=== PATIENT | female | born 1950 | race Caucasian/White ===

== ENCOUNTER 2016-12-30 05:21 | Day surgery (SDC) | payer MEDICARE ==
[2016-12-29 13:58] LABS: HEMATOCRIT 46.1 % (36.0-48.0); MCH 32.3 pg (26.0-34.0); MCHC 32.5 g/dL (31.0-37.0); MCV 99.1 fL (80.0-100.0); MEAN PLATELET VOLUME 10.7 fL (7.4-10.4); RBC 4.65 10x6/uL (4.00-5.40); RDW 13.3 % (11.5-14.5); WBC 9.7 10x3/uL (4.8-10.8)
[2016-12-29 14:14] LABS: ANION GAP 17.7 mmol/L (8-16); CALCIUM 9.3 mg/dL (8.5-10.1); CARBON DIOXIDE 25.1 mmol/L (21.0-32.0); CREATININE - SERUM 1.1 mg/dL (0.6-1.3); POTASSIUM - SERUM 3.8 mmol/L (3.5-5.1)
[~2016-12-30] VITALS: Ht 170.2 cm; Wt 76.2 kg
[~2016-12-30 05:21] MED LIST: AMBIEN10 MG PO; BENICAR20 MG PO; CYCLOBENZAPRINE10 MG PO; HYDROCODONE-APA1 TAB PO; LOPRESSOR25 MG PO; MELOXICAM TAB 15M; OMEPRAZOLE20 M1 PO; TORSEMIDE20 MG PO; TRAZODONE HCL150 MG PO; ZOCOR40 MG PO
[2016-12-30 09:01] VITALS: Ht 170.2 cm; Wt 76.2 kg
[2016-12-30] MEDS ORDERED: HYDROCODONE-APA1 TAB PO (11:55)
--- NOTE | 2016-12-30 13:47 | NUR ---
1330 CONSUMED APPROX 80% DIET; DENIES NAUSEA; TO B/R; VOIDED MOD AMT 1340 DISCHARGE INSTRUCTIONS AND PENDELUM EXERCISES DEMONOSTRATED AND REVIEWED WITH PATIENT; VERBALIZED UNDERSTANDING
--- NOTE | 2016-12-31 15:11 | OP ---
PATIENT NAME: ANAYELI CUMMINGS MEDICAL RECORD: [id number] :52 LOCATION:[facility] ADMISSION DATE: SURGEON: BARRINGTON WOOD, THEODORE TAN DATE OF OPERATION: 12/30/2016 PREOPERATIVE DIAGNOSES: 1. Impingement syndrome of the right shoulder. 2. Rotator cuff tear. 3. Distal clavicle excision. POSTOPERATIVE DIAGNOSES: 1. Impingement syndrome of the right shoulder. 2. Rotator cuff tear. 3. Distal clavicle excision. 4. Severe biceps tendinitis. PROCEDURES: 1. Arthroscopic rotator cuff repair of the right shoulder. 2. Arthroscopic subacromial decompression, acromioplasty and bursectomy. PROCEDURES: 1. Arthroscopic distal clavicle excision. 2. Arthroscopic biceps tenotomy. SURGEON: Theodore Ferris MD. ANESTHESIA: General. INTRAOPERATIVE COMPLICATIONS: None. SUMMARY OF PATHOLOGIC FINDINGS: The patient had severe impingement anatomy with rotator cuff tearing, near full-thickness tearing of the biceps tendon as well as acromioclavicular arthritis and a type 3 acromion with excoriation of the coracoacromial ligament. OPERATIVE SUMMARY IN DETAIL: After obtaining the appropriate preoperative orthopedic surgery consents as well as anesthetic consultation, evaluation and clearance, the patient was brought to the operating room and placed on the operating table in supine position. After general laryngeal mask was administered, the patient was placed in left lateral decubitus position. All pressure points were well padded to include down leg peroneal pad as well axillary roll. The patient was held to the operating room table using the vacuum pack suction system. Right upper extremity and shoulder were then prepped and draped in routine sterile fashion. The arm was held in the Arthrex traction boom at 30 degrees of forward flexion, 30 degrees of abduction with 10 pounds of traction laterally. Arthroscopy was established in the glenohumeral joint from a posterior portal. Anterior portal was established in the anterior safe interval. Diagnostic arthroscopy did show the patient to have rotator cuff tearing as well as severe biceps tendinitis. At this point, transarthroscopic rotator cuff tear portal was created. A resector was utilized to debride the rotator cuff tear as well as decorticate the area of the rotator cuff for reapproximation. Surface tissue ablation system was utilized to perform a biceps tenotomy. Having completed this, attention was turned to the subacromial space. [place] tissue ablation system was utilized to denude the undersurface of the acromion of all soft tissue elements. A 5-0 barrel allison was used to perform OPERATIVE REPORT [id number] EMILIANOANAYELI PARIKH acromioplasty at the level of acromioclavicular joint and then through a separate anterior arthroscopic portal, distal clavicle was excised for 1 cm. Attention was then returned to the rotator cuff, further decortication was carried out and then a single #2 FiberTape was placed in an inverted mattress fashion and anchored laterally using a 5.5 SwiveLock from Arthrex. Having completed this, arthroscopy portals were closed in routine interrupted fashion using 4-0 Prolene. Sterile dressings were applied. The patient was awakened, taken to recovery in stable condition. All final needle and sponge counts were correct. TRANSINT:[id number] Voice Confirmation ID: [id number] DOCUMENT ID: [id number] BARRINGTON WOOD, THEODORE TAN at 1511 CC: [id number] DICTATION DATE: 12/30/16 1150 OUTPATIENT INTERVIEWING CLERK: 12/30/16 1249 [facility] 12/30/16 [facility] [address] [place] [address]
== END 2016-12-30 13:45 | disposition home or self-care (01) ==
LOC: D.OPS 05:21 → D.PAN 10:45 → D.OPS 13:40 → D.PAN 13:40 → D.OPS 13:45 → D.PAN 14:40 → D.OPS 14:45 → D.PAN 14:45
PROVIDERS: Anesthesiology
DX: M75.111 Incomplete rotator cuff tear or rupture of right shoulder, not specified as traumatic (principal); M75.41 Impingement syndrome of right shoulder; M75.21 Bicipital tendinitis, right shoulder

== ENCOUNTER 2017-12-02 17:27 | Emergency (ER) | payer MEDICARE ==
[2016-12-30 09:01] VITALS: BMI 26.3
[2017-12-02 18:37] LABS: APPEARANCE CLEAR (CLEAR); BILIRUBIN NEGATIVE (NEGATIVE); COLOR YELLOW (YELLOW); GLUCOSE NEGATIVE (NEGATIVE); KETONE NEGATIVE (NEGATIVE); NITRITE NEGATIVE (NEGATIVE); PROTEIN NEGATIVE (NEGATIVE); UROBILINOGEN NORMAL (NORMAL)
[2017-12-02 18:40] LABS: BACTERIA FEW /hpf (NONE SEEN); RED CELLS - URINE OCC /hpf (0-5); WHITE CELLS - URINE 0-5 /hpf (0-5)
== END 2017-12-02 19:35 | disposition home or self-care (01) ==
LOC: D.ER 17:27
PROVIDERS: Family Medicine
DX: M54.16 Radiculopathy, lumbar region (principal)

== ENCOUNTER → 2018-12-11 13:00 | Outpatient (CLI) | payer MEDICARE ==
[2016-12-30 09:01] VITALS: BMI 26.3
[2018-12-11 14:03] LABS: APPEARANCE CLEAR (CLEAR); BILIRUBIN NEGATIVE (NEGATIVE); COLOR YELLOW (YELLOW); GLUCOSE NEGATIVE (NEGATIVE); KETONE NEGATIVE (NEGATIVE); NITRITE NEGATIVE (NEGATIVE); PROTEIN NEGATIVE (NEGATIVE); SPECIFIC GRAVITY 1.005 (1.005-1.020); UROBILINOGEN NORMAL (NORMAL)
== END | disposition home or self-care (01) ==
LOC: D.LAB 12-07 14:00
PROVIDERS: ATTEND Internal Medicine
DX: N17.9 Acute kidney failure, unspecified (principal)

== ENCOUNTER → 2018-12-13 12:10 | Outpatient (CLI) | payer MEDICARE ==
[2016-12-30 09:01] VITALS: BMI 26.3
[2018-12-13 13:00] LABS: ALBUMIN 3.8 g/dL (3.4-5.0); ANION GAP 12.6 mmol/L (8-16); BILIRUBIN - TOTAL 0.35 mg/dL (0.2-1.3); CALCIUM 8.8 mg/dL (8.5-10.1); CARBON DIOXIDE 28.6 mmol/L (21.0-32.0); CREATININE - SERUM 1.1 mg/dL (0.6-1.3); POTASSIUM - SERUM 3.2 mmol/L (3.5-5.1); PROTEIN - SERUM 6.9 g/dL (6.4-8.2)
== END | disposition home or self-care (01) ==
LOC: D.LAB 12:10
PROVIDERS: ATTEND Specialist
DX: N17.9 Acute kidney failure, unspecified (principal)

== ENCOUNTER 2019-01-05 05:54 | Outpatient (CLI) | payer MEDICARE ==
[~2019-01-05] VITALS: Ht 170.2 cm; Wt 68.6 kg
--- NOTE | ~2019-01-05 | HEMODYNAMI ---
PATIENT:ANAYELI CUMMINGS MEDICAL RECORD: [id number] : 52 LOCATION:[facility] ADMISSION DATE: 01/05/19 Generatedon:01/05/201911:20 Patient name: ANAYELI CUMMINGS Patient #: [id number] SSN : : 1950 Date of study: 01/05/2019 Page: Of Hemodynamic Procedure Report Patient Data Patient Demographics Procedure consent was obtained First Name: ANAYELI Gender: Female Last Name: EMILIANO : 1950 [facility] Initial: JL Age: 68 year(s) Patient #: [id number] Race: Unknown Additional ID: [id number] Contact details [address]: [address] [place] [address] [place] [facility] Zip code: [address] Past Medical History Allergies Allergen Reaction Date Comments Reported Penicillins 01/05/2019 Admission Admission Data Admission Date: 01/05/2019 Admission Time: 5:54 Procedure Procedure Types Cath Procedure Peripheral Cath Diagnostic Procedure Abd/Extremity Visceral/Mesenteric Mesenteric Arteriogram (Abd Artery) Procedure Description Procedure Date Procedure Date: 01/05/2019 Procedure Start Time: 9:17 Procedure End Time: 11:18 Procedure Staff Name Function Stanislaw Mccall MD Performing Physician Lidya Gabriel RT Monitor Odalys Rogers RN Nurse Quoc Tijerina RT Scrub AZRA ARENAS RT Scrub Jovanna Sharp RN Nurse Procedure Data Cath Procedure Fluoroscopy Diagnostic fluoroscopy Total fluoroscopy Time: time: 24.8 min 24.8 min Diagnostic fluoroscopy Total fluoroscopy dose: dose: 3244 mGy 3244 mGy Contrast Material Contrast Material Type Amount (ml) Isovue 300 105 Diagnostic catheters Device Type Used For End Catheter Placement Angiodynamics SOS OMNI 2 Abdominal NON B 5FR 65CM catheter aortogram ([id number]) Procedure Medications Medication Administration Route Dosage Heparin Flush Bag added to field 3 bags (1000units/500ml NS) Lidocaine 1% added to field 20 Fentanyl I.V. 50 mcg Versed I.V. 1 mg Versed I.V. 0.5 mg Fentanyl I.V. 25 mcg Versed I.V. 0.5 mg Fentanyl I.V. 25 mcg Benadryl I.V. 25 mg Benadryl I.V. 25 mg Fentanyl I.V. 50 mcg Versed I.V. 1 mg Heparin Bolus 5000 units Versed I.V. 1 mg Fentanyl I.V. 50 mcg Versed I.V. 1 mg Versed I.V. 1 mg Hemodynamics Rest Heart Rate: 64 (bpm) Snapshots Pre Cath Intra NCS Post Cath Vital Signs Time Heart Resp SPO2 etCO2 NIBP (mmHg) Rhythm Pain Sedation Rate (ipm) (%) (mmHg) Status Level (bpm) 8:50:23 66 99 0 142/75(115) NSR 0 (11) 10(A) , No pain 8:54:41 69 15 98 29.4 148/74(116) NSR 0 (11) 10(A) , No pain 8:59:05 66 16 100 29.4 144/67(116) NSR 0 (11) 9(A) , No pain 9:03:29 63 11 100 27.9 140/63(117) NSR 0 (11) 9(A) , No pain 9:07:52 62 11 100 31.6 142/60(128) NSR 0 (11) 9(A) , No pain 9:12:51 65 12 100 30.1 143/71(106) NSR 0 (11) 9(A) , No pain 9:17:11 69 17 100 28.6 148/70(107) NSR 0 (11) 8(A) , No pain 9:21:31 67 14 100 30.9 129/66(106) NSR 0 (11) 8(A) , No pain 9:25:39 75 24 100 18.8 125/67(99) NSR 0 (11) 8(A) , No pain 9:29:55 68 22 100 21.8 132/63(97) NSR 0 (11) 8(A) , No pain 9:34:15 67 5 100 34.6 137/62(97) NSR 0 (11) 8(A) , No pain 9:38:35 70 15 100 33.1 135/66(96) NSR 0 (11) 8(A) , No pain 9:42:53 71 16 100 22.6 134/68(93) NSR 0 (11) 8(A) , No pain 9:47:11 72 10 100 35.4 140/69(93) NSR 0 (11) 8(A) , No pain 9:51:33 67 15 100 32.4 134/64(105) NSR 0 (11) 8(A) , No pain 9:55:56 66 15 100 32.4 132/57(95) NSR 0 (11) 8(A) , No pain 10:00:16 68 15 99 36.9 127/60(96) NSR 0 (11) 8(A) , No pain 10:04:34 68 12 100 38.4 117/59(90) NSR 0 (11) 8(A) , No pain 10:08:50 67 11 100 36.9 114/52(92) NSR 0 (11) 8(A) , No pain 10:13:04 68 10 100 33.1 123/54(93) NSR 0 (11) 8(A) , No pain 10:17:20 68 20 33.1 121/62(89) NSR 0 (11) 8(A) , No pain 10:21:36 68 16 33.9 137/56(92) NSR 0 (11) 8(A) , No pain 10:25:54 68 13 100 31.6 130/67(103) NSR 0 (11) 8(A) , No pain 10:30:12 65 12 100 31.6 131/61(97) NSR 0 (11) 8(A) , No pain 10:34:30 63 14 99 27.9 128/63(103) NSR 0 (11) 8(A) , No pain 10:38:46 63 16 100 16.5 119/64(85) NSR 0 (11) 8(A) , No pain 10:42:58 63 12 100 31.6 124/66(103) NSR 0 (11) 8(A) , No pain 10:47:14 64 30 100 31.6 134/64(108) NSR 0 (11) 8(A) , No pain 10:48:52 64 17 100 30.1 134/66(112) NSR 0 (11) 8(A) , No pain 10:53:11 63 10 100 33.1 127/65(104) NSR 0 (11) 8(A) , No pain 10:57:26 66 16 97 27.9 131/63(89) NSR 0 (11) 8(A) , No pain 11:01:45 63 8 16.5 126/65(87) NSR 0 (11) 8(A) , No pain 11:06:07 58 5 18.8 116/49(58) NSR 0 (11) 8(A) , No pain 11:10:17 59 15 28.6 129/70(94) NSR 0 (11) 8(A) , No pain 11:14:43 59 52 27.1 NSR 0 (11) 8(A) , No pain 11:16:48 59 17 25.6 Disturbed NSR 0 (11) 8(A) , No pain 11:18:02 59 15 32.4 131/67(111) NSR 0 (11) 8(A) , No pain Medications Time Medication Route Dose Verified Delivered Reason Notes Effectiveness by by 8:56:41 Heparin Flush added 3 Stanislaw Dover used for Bag to bags Cal Mccall MD procedure (1000units/500ml field WOOD NS) 8:57:26 Lidocaine 1% added 20ml Stanislaw Dover for local to vial Cal Mccall MD anesthetic field WOOD 9:16:19 Fentanyl I.V. 50 Stanislaw Jovanna for sedation mcg Aron Mccall RN, MD 9:16:44 Versed I.V. 1 mg Stanislaw Nugent for sedation Aron Mccall RN, MD 9:19:45 Versed I.V. 0.5 Stanislaw Jovanna for sedation mg Aron Mccall RN, MD 9:19:56 Fentanyl I.V. 25 Stanislaw Odonnelli for sedation mcg Aron Mccall RN, MD 9:20:46 Versed I.V. 0.5 Stanislaw Jovanna for sedation mg Aron Mccall RN, MD 9:20:58 Fentanyl I.V. 25 Stanislaw Jovanna for sedation mcg Aron Mccall RN, MD 9:25:05 Benadryl I.V. 25 mg Stanislaw Nugent for sedation Aron Mccall RN, MD 9:32:49 Benadryl I.V. 25 mg Stanislaw Jovanna for sedation Aron Mccall RN, MD 9:49:34 Fentanyl I.V. 50 Stanislaw Jovanna for sedation mcg Aron Mccall RN, MD 9:49:45 Versed I.V. 1 mg Stanislaw Jovanna for sedation Aron Mccall RN, MD 9:57:56 Heparin Bolus 5000 Stanislaw Jovanna for units Aron Mccall RN anticoagulation 10:01:55 Versed I.V. 1 mg Stanislaw Jovanna for sedation Aron Mccall RN, MD 10:02:05 Fentanyl I.V. 50 Stanislaw Jovanna for sedation mcg Aron Mccall RN, MD 10:28:26 Versed I.V. 1 mg Stanislaw Jovanna for sedation Aron Mccall RN, MD 10:52:38 Versed I.V. 1 mg Stanislaw Jovanna for sedation Aron Mccall RN, MD Procedure Log Time Note 7:56:12 Use device set IR Diagnostic 7:56:14 ACIST Syringe (44005) opened to sterile field. 7:56:15 ACIST Hand Control (41784) opened to sterile field. 7:56:16 ACIST Manifold (61478) opened to sterile field. 7:56:17 Bag Decanter (2002S) opened to sterile field. 7:56:18 Sterile Angiographic Pack opened to sterile field. 7:56:19 Tegaderm 4 x 4 (1626W) opened to sterile field. 7:57:04 SHEATH 5FR [place] (UMO830) opened to sterile field. 8:00:09 MICROPUNCTURE 4FR Cook (I88011) opened to sterile field. 8:00:59 DOC .035 wire (D54850) opened to sterile field. 8:47:37 Quoc Tijerina RT (R) (CV) sent for patient. Start room use. 8:47:41 Time tracking: Regular hours (M-F 7:00 - 5:00) 8:47:52 Plan of Care:Hemodynamics will remain stable., Cardiac rhythm will remain stable., Comfort level will be maintained., Respiratory function will remain adequate., Patient/ family verbilizes understanding of procedure., Procedure tolerated without complication., Recovers from procedure without complications.. 8:48:03 Patient received from Outpatients to IR Alert and oriented. Tansferred to table in Supine position. 8:48:06 Warm blankets applied for patient comfort. 8:49:03 Correct patient and procedure confirmed by team. 8:49:07 Signed procedure consent form obtained from patient. 8:49:09 ECG and BP/O2 sat monitors applied to patient. 8:49:10 Vital chart was started 8:49:21 Baseline sample Acquired. 8:49:52 Full Disclosure recording started 8:49:53 - 8:50:13 H&P Date Dictated: 01/05/2019 H&P Addendum completed by physician on day of procedure. (MUST COMPLETE FOR ALL OUTPATIENTS). 8:50:16 Pre-procedure instructions explained to patient. 8:50:18 Pre-op teaching completed and patient verbalized understanding. 8:50:29 Family in waiting room. 8:50:34 Patient NPO since Dinner. 8:50:50 Patient allergic to Penicillins 8:50:57 Is the patient allergic to Iodine/contrast media? No. 8:51:17 ----Pre-sedation anethsthesia assessment.---- 8:51:22 Previous problem with sedation/anesthesia? No ? 8:51:28 Opens mouth fully? Yes 8:51:32 Sticks out tongue? Yes 8:51:38 Airway obstruction? No ? 8:51:41 Dentures? No ? 8:53:35 Is patient on blood thinner?Yes 8:53:42 ACC The patient was administered the following blood thiners within the last 24 hours: ACCPlavix 8:54:06 Baseline sample Acquired. 8:54:43 Snore? Yes 8:54:46 Sleep apnea? No 8:54:50 Deviated septum? No 8:55:09 Pre procedure: bilateral dorsailis pedis pulse Doppler 8:56:07 IV patent on arrival in left forearm with 0.9% NaCl at [facility]. 8:56:22 Right groin area was prepped with chlora-prep and draped in sterile fashion 8:56:24 Alarms reviewed. 8:56:25 Sharps counted by scrub and verified. 8:56:41 Heparin Flush Bag (1000units/500ml NS) 3 bags added to field was administered by Stanislaw Mccall MD; used for procedure; 8:57:26 Lidocaine 1% 20ml vial added to field was administered by Stanislaw Mccall MD; for local anesthetic; 9:13:35 Angiodynamics Omniflush 5Fr 65cm ([id number]) opened to sterile field. 9:13:51 Physician arrived 9::52 --------ALL STOP TIME OUT------ 9:13:54 Final Timeout: patient, procedure, and site verified with staff and physician. All members of the team are in agreement. 9:13:59 Right groin site verified by team. 9:14:13 Sedation plan: IV Moderate Sedation Medication:Versed, Fentanyl, Lidocaine 9:14:19 Procedure started. 9:16:19 Fentanyl 50 mcg I.V. was administered by Jovanna Sharp RN; for sedation; 9:16:44 Versed 1 mg I.V. was administered by Jovanna Sharp RN; for sedation; 9:17:25 Local anesthetic to right femoral artery with Lidocaine 1% by Stanislaw Mccall MD.INITIAL ACCESS ONLY 9:19:45 Versed 0.5 mg I.V. was administered by Jovanna Sharp RN; for sedation; 9:19:46 GLIDE WIRE Angled Super Stiff 180cm (UO5998) opened to sterile field. 9:19:56 Fentanyl 25 mcg I.V. was administered by Jovanna Sharp RN; for sedation; 9:20:12 TORQUE DEVICE PLASTIC .038 ( TD01) opened to sterile field. 9:20:23 Access obtained with 4Fr micropunture. 9:20:46 Versed 0.5 mg I.V. was administered by Jovanna Sharp RN; for sedation; 9:20:58 Fentanyl 25 mcg I.V. was administered by Jovanna Sharp RN; for sedation; 9:21:31 5 icelandic sheath in the right femeral artery. 9:23:14 An injection is performed thru the sheath. 9:23:50 The 5 icelandic omni flush catheter is inserted into the Abd aorta. 9:25:05 Benadryl 25 mg I.V. was administered by Jovanna Sharp RN; for sedation; 9:27:15 An injection was made. 9:28:12 GLIDE WIRE ANGLE 180cm (NZ8249) opened to sterile field. 9:30:10 A Angiodynamics SOS OMNI 2 NON B 5FR 65CM catheter ([id number]) was advanced over the wire and used for Abdominal aortogram. 9:31:30 An exchange is made for the sos omni catheter. 9:32:49 Benadryl 25 mg I.V. was administered by Jovanna Sharp RN; for sedation; 9:35:03 GLIDE CATHETER 5FR ANGLED 65cm (CG507) opened to sterile field. 9:43:30 Fraire 180 wire (C61000) opened to sterile field. 9:46:49 SHEATH 6FR Destination (RSR01) opened to sterile field. 9:47:25 INFLATOR BasixTOUCH (KO8040) opened to sterile field. 9:49:34 Fentanyl 50 mcg I.V. was administered by Jovanna Sharp RN; for sedation; 9:49:45 Versed 1 mg I.V. was administered by Jovanna Sharp RN; for sedation; 9:53:17 FRAIRE 260 wire (N83936) opened to sterile field. 9:53:57 The 5 icelandic sheath is exchanged for a 6 icelandic destination sheath. 9:57:56 Heparin Bolus 5000 units was administered by Jovanna Sharp RN; for anticoagulation; 9:59:14 Inflate balloon Inflation number: 1 A Evercross 3 x 2 x 135 Balloon ([id number]) was prepped and advanced across the Proximal Superior Mesenteric, then inflated to 0 BETTY for 0:00 (min:sec). 10:01:55 Versed 1 mg I.V. was administered by Jovanna Sharp RN; for sedation; 10:02:05 Fentanyl 50 mcg I.V. was administered by Jovanna Sharp RN; for sedation; 10:13:58 a second inflation is made with the evercross balloon:10atm for 20 seconds. 10:14:20 The evercross balloon was exchanged for the VISI-PRO STENT 5X17. 10:14:32 Place stent Inflation Number: 2 A Visipro 5 x 17 x 135 Stent ([id number]) was prepped and advanced across the Proximal Superior Mesenteric. The stent was deployed at 8 BETTY for 0:00 (min:sec). 10:15:41 stent retrived from sma artery did not deploy and was deployed in rt iliac artery 10:19:57 CXI Catheter 90cm (A87915) opened to sterile field. 10:21:51 The stent catheter is removed and the CXI catheter is insterted into th e sma. 10:27:11 Cook Conchita 1 7Fr Guide sheath opened to sterile field. 10:28:26 Versed 1 mg I.V. was administered by Jovanna Sharp RN; for sedation; 10:29:16 The destination sheath is removed and the Cook Conchita 1 7 icelandic guide sheath is inserted into the right femeral artery. 10:30:29 the CXI cath is reinserted. 10:34:29 Inflate balloon Inflation number: 3 A Evercross 3 x 6 x 135 Balloon ([id number]) was prepped and advanced across the Proximal Superior Mesenteric, then inflated to 10ATM for 0:20 (min:sec). 10:48:00 St To[place] 7FR sheath opened to sterile field. 10:49:44 The 7 icelandic short sheath replaces the cook conchita 1 sheath. 10:50:09 Inflate balloon Inflation number: 1 A Evercross 5 x 4 x 135 Balloon ([id number]) was prepped and advanced across the right iliac , then inflated to 10 BETTY for 0:30 (min:sec). 10:52:38 Versed 1 mg I.V. was administered by Jovanna Sharp RN; for sedation; 10:58:15 EXOSEAL 7Fr (EX700) opened to sterile field. 10:58:51 The sheath is removed and the exoseal is deployed. 10:59:56 Procedure ended.(Physican Out) 11:05:23 Fluoroscopy time 24.80 minutes. 11:05:40 Fluoroscopy dose: 3244 mGy 11:05:40 Flurop Dose total: 3244 11:05:49 Contrast amount:Isovue 300 105ml. 11:05:52 Sharps counted by scrub and verified. 11:11:18 Post-op/insertion site Right Femoral artery dressed using a 4 x 4 and Tegaderm. 11:11:31 Post right femeral artery:stable 11:11:59 Post Procedure Pulses reassessed and unchanged 11:12:08 Post procedure instruction explained to patient.Patient verbalizes understanding. 11:12:09 Patient needs reinforcement of post procedure teaching. 11:17:50 Procedure and supply charges have been captured, reviewed, submitted an d are correct. 11:17:53 See physician's report for complete and final results. 11:17:58 Report given to Outpatients. 11:18:07 Patient transfered to Outpatients with Stretcher. 11:18:52 Procedure ended. 11:18:52 Full Disclosure recording stopped 11:20:05 Vital chart was stopped Intervention Summary Intervention Notes Time ActionType Lesion and Equipment Used Action# Pressure Duration Attributes 9:59:14 Inflate Proximal Evercross 3 x 2 x 1 0 00:00 balloon Superior 135 Balloon Mesenteric ([id number]) 10:14:32 Place stent Proximal Visipro 5 x 17 x 2 8 00:00 Superior 135 Stent Mesenteric ([id number]) 10:34:29 Inflate Proximal Evercross 3 x 6 x 3 0 00:00 balloon Superior 135 Balloon Mesenteric ([id number]) 10:50:09 Inflate Undefined Evercross 5 x 4 x 1 0 00:00 balloon lesion 1 on 135 Balloon undefined ([id number]) graft 1 Device Usage Item Name Manufacture Quantity Catalog Number Hospital Part Curr ent Minimal Lot# / Charge Number Stock Stock Serial# Code ACIST Syringe Acist Medical 1 03032 663398 299934 4274 85 20 (58823) Systems Inc ACIST Hand Acist Medical 1 87264 871660 968606 3591 12 5 Control (71990) Systems Inc ACIST Manifold Acist Medical 1 05618 689935 627229 0081 29 5 (57807) Systems Inc Bag Decanter Microtek 1 2001S 502849 86614 9871 15 5 (2001S) Medical Inc. Sterile Cardinal 1 [id number] 477446 2729 84 5 Angiographic Pack Health Tegaderm 4 x 4 3M 1 1626W 738694 777849 4244 43 5 (1626W) SHEATH 5FR Terumo 1 YNF076 207484 169267 0814 08 5 [place] (BFI029) MICROPUNCTURE 4FR Cook Medical 1 H08033 670081 708906 7879 65 5 Cook (N65677) DOC .035 wire Cook Medical 1 S64567 206659 9658 01 5 (Q32027) Angiodynamics Angiodynamics 1 47161064 063428 987485 0863 46 5 Omniflush 5Fr 65cm (30359788) GLIDE WIRE Angled Terumo 1 IZ3703 889518 8280 27 5 Super Stiff 180cm (ON7403) TORQUE DEVICE Rufus 1 TD01 467411 218622 4645 47 5 PLASTIC .038 ( Scientific TD01) GLIDE WIRE ANGLE Terumo 1 AV9021 445969 189352 4150 35 5 180cm (NC6467) Angiodynamics SOS Angiodynamics 1 68823643 172998 01558 9999 12 5 OMNI 2 NON B 5FR 65CM catheter (13550192) GLIDE CATHETER Terumo 1 CG507 979148 4754 30 5 5FR ANGLED 65cm (CG507) Fraire 180 wire Selligy Medical 1 V04206 311127 634734 0051 967 5 6919281 (U65938) SHEATH 6FR Terumo 1 RSR01 763761 47648 9996 46 5 Destination (RSR01) INFLATOR [facility] 1 YW2408 492572 711961 3538 87 5 BasixTOUCH (BN7017) Evercross 3 x 2 x Medtronic 1 [id number] 876995 333809 4834 95 5 [id number] 135 Balloon ([id number]) FRAIRE 260 wire Elo7 1 Y77165 321769 61479 9995 98 5 0234125 (W62270) Visipro 5 x 17 x Medtronic 1 WQF02-30-21-995 299430 286128 3525 98 5 [id number] 135 Stent (TVY35-43-38-998) CXI Catheter 90cm Elo7 1 P60535 750564 161877 9425 16 5 7134876 (Q81724) Cook Conchita 1 7Fr Selligy Medical 1 H19420 946230 2891 90 5 [id number] Guide sheath Evercross 3 x 6 x Medtronic 1 [id number] 866439 577622 2895 95 5 135 Balloon ([id number]) St Toño 7FR St Toño 1 382612 337339 2250 61 5 [id number] sheath Evercross 5 x 4 x Medtronic 1 [id number] 563417 634397 6392 89 5 135 Balloon ([id number]) EXOSEAL 7Fr Cardinal 1 EX700 514832 288804 3815 49 5 (EX700) Health Signature Audit [place] Stage Time Signature Unsigned Intra-Procedure 01/05/2019 Lidya 11:20:01 AM Harvey HICKEY(Fatou) (CV) Signatures Monitor : Lidya Signature : Harvey HICKEY Date : Time : [facility] [address] [place] [address]
[2019-01-05 06:37] LABS: BASOPHILS 1.4 % (0-2); EOSINOPHILS 3.7 % (0-7); HEMATOCRIT 38.2 % (36.0-48.0); IMMATURE GRANULOCYTES 0.1 % (0-5); LYMPHOCYTES 18.5 % (15-50); MCH 32.3 pg (26.0-34.0); MCV 94.8 fL (80.0-100.0); MEAN PLATELET VOLUME 10.8 fL (7.4-10.4); MONOCYTES 8.2 % (2-11); NEUTROPHILS 68.1 % (40-80); PLATELET COUNT 277 10x3/uL (130-400); RBC 4.03 10x6/uL (4.00-5.40); WBC 8.3 10x3/uL (4.8-10.8)
[2019-01-05 06:50] LABS: ANION GAP 12.9 mmol/L (8-16); CALCIUM 8.9 mg/dL (8.5-10.1)
[2019-01-05 06:51] LABS: APTT 25.6 SECONDS (22.8-39.4); INR 1.01 (0.85-1.17); PROTIME 12.8 SECONDS (11.6-15.0)
[2019-01-05 06:58] LABS: POTASSIUM - SERUM 2.9 mmol/L (3.5-5.1)
[2019-01-05] MEDS ORDERED: PLAVIX75 MG (07:18)
[2019-01-05] MEDS ORDERED: BAYER CHEWABLE81 MG PO (07:18)
[2019-01-05 07:32] VITALS: BP 107/63; Ht 170.2 cm; Wt 68.6 kg
--- NOTE | 2019-01-05 08:09 | NUR ---
7558 LIGIA NICK RN NOTIFIED OF PT'S CRITICAL LOW POTASSIUM AND THAT PT TOOK HER PLAVIX AT 0330 TODAY. STATES SHE WILL RELAY INFORMATION TO DR HERNÁNDEZ. 1000 RECEIVED PHONE CALL FROM LIGIA THAT POTASSIUM IN POWDER FORM HAS BEEN ORDERED ON PT FROM DR. HERNÁNDEZ. REQUESTING IT BE GIVEN EMILY. 0805 POTASSIUM MIXED IN 4 OZ OF COLD WATER.
--- NOTE | 2019-01-05 12:13 | NUR ---
1130 VITAL SIGNS BEING DOCUMENTED ON POST PROCEDURE FORM.
--- NOTE | 2019-01-05 12:23 | NUR ---
1215 ICE PACK TO RIGHT GROIN
--- NOTE | 2019-01-05 16:06 | NUR ---
1445 PT NAUSEATED AND VOMITED SMALL AMOUNT OF WATER. ZOFRAN GIVEN 1505 PT SAT ON SIDE OF BED WITHOUT DIZZINESS. AMBULATED WITHOUT ANY SIGNS OF WEAKNESS. PT STATES THAT SHE FEELS FINE. PT SITTING UP IN CHAIR FOR A FEW MINUTES BEFORE TAKING OUT IV. 1515 IV DC'D. CATHETER INTACT. NO BLEEDING AT SITE AFTER HOLDING PRESSURE. BANDAID APPLIED. 1520 PT DRESSED. DISCHARGED INSTRUCTIONS GIVEN. PT VERBALIZES UNDERSTANDING OF CARE OF RIGHT GROIN DRESSING AND WHAT TO DO IF IT STARTS TO BLEED.
== END 2019-01-05 15:32 | disposition home or self-care (01) ==
LOC: D.SP 05:54 → D.RAD 09:00 → D.SP 15:32
PROVIDERS: ATTEND General Practice
DX: I77.4 Celiac artery compression syndrome (principal); K55.1 Chronic vascular disorders of intestine; Z01.812 Encounter for preprocedural laboratory examination

== ENCOUNTER 2019-01-22 10:40 | Inpatient (IN) | payer MEDICARE ==
[~2019-01-22] VITALS: Ht 170.2 cm; Wt 83.8 kg
[2019-01-22] VITALS (18 sets, daily range): BP systolic 77–105; BP diastolic 40–59; BMI 23.5; BMI 24.8
--- NOTE | ~2019-01-22 | HEMODYNAMI ---
PATIENT:ANAYELI CUMMINGS MEDICAL RECORD: [id number] : 52 LOCATION:[facility] ADMISSION DATE: 01/22/19 Generatedon:01/22/201916:05 Patient name: ANAYELI CUMMINGS Patient #: [id number] SSN : : 1950 Date of study: 01/22/2019 Page: Of Hemodynamic Procedure Report Patient Data Patient Demographics Procedure consent was obtained First Name: ANAYELI Gender: Female Last Name: EMILIANO : 1950 [facility] Initial: JL Age: 68 year(s) Patient #: [id number] Race: Unknown Additional ID: [id number] Contact details [address]: [address] [place] [address] [place] [facility] Zip code: [address] Past Medical History Allergies Allergen Reaction Date Comments Reported Penicillins 01/05/2019 Admission Admission Data Admission Date: 01/22/2019 Admission Time: 10:40 Procedure Procedure Types Cath Procedure Peripheral Cath Diagnostic Procedure Abd/Extremity Visceral/Mesenteric Procedure Description Procedure Date Procedure Date: 01/22/2019 Procedure Start Time: 13:53 Procedure Staff Name Function Stanislaw Mccall MD Performing Physician Quoc Tijerina RT Monitor AZRA ARENAS RT Scrub Jovanna Sharp RN Nurse [place] CRNA Additional personnel Procedure Data Cath Procedure Fluoroscopy Diagnostic fluoroscopy Total fluoroscopy Time: 0 time: 0 min min Diagnostic fluoroscopy Total fluoroscopy dose: dose: 1456 mGy 1456 mGy Contrast Material Contrast Material Type Amount (ml) Isovue 300 195 Entry Location Entry Primary Successful Side Size Upsize 1 Upsize Entry Closure Mark ccessful Closure Location (Fr) (Fr) 2 (Fr) Remarks Device Remarks Femoral Left 5 Fr 6 Fr artery Mid-Length Diagnostic catheters Device Type Used For End Catheter Placement Angiodynamics SOS OMNI 2 NON B 5FR 65CM catheter ([id number]) DIAGNOSTIC IMT 5Fr Catheter ([id number]) Procedure Medications Medication Administration Route Dosage Heparin Flush Bag added to field 3 bags (1000units/500ml NS) Lidocaine 1% added to field 20 Heparin Bolus I.V. 4000 units Heparin Bolus I.V. 2000 units Hemodynamics Rest Pre Cath Intra NCS Post Cath Medications Time Medication Route Dose Verified Delivered Reason Notes Effectiveness by by 13:44:35 Heparin Flush added 3 Stanislaw Dover used for Bag to bags Cal Mccall MD procedure (1000units/500ml field WOOD NS) 13:45:13 Lidocaine 1% added 20ml Stanislaw Dover for local to vial Cal Mccall MD anesthetic field WOOD 14:46:01 Heparin Bolus I.V. 4000 Stanislaw Nugent for units Aron Mccall RN anticoagulation 15:20:35 Heparin Bolus I.V. 2000 Stanislaw Nugent for units Aron Mccall RN anticoagulation Procedure Log Time Note 13:20:17 Quoc Tijerina RT (R) (CV) sent for patient. Start room use. 13:21:26 Time tracking: Regular hours (M-F 7:00 - 5:00) 13:21:32 Plan of Care:Hemodynamics will remain stable., Cardiac rhythm will remain stable., Comfort level will be maintained., Respiratory function will remain adequate., Patient/ family verbilizes understanding of procedure., Procedure tolerated without complication., Recovers from procedure without complications.. 13:21:41 Patient received from Outpatients to IR Alert and oriented. Tansferred to table in Supine position. 13:21:42 Warm blankets applied, and travis hugger turned on for patient comfort. 13:21:43 Correct patient and procedure confirmed by team. 13:21:44 Signed procedure consent form obtained from patient. 13:21:46 Full Disclosure recording started 13:21:47 - 13:22:05 SEE ANESTHESIA NOTE FOR PRE PROCEDURE TIVA 13:22:06 - 13:22:10 Use device set IR Diagnostic 13:22:11 ACIST Syringe (91657) opened to sterile field. 13:22:12 ACIST Hand Control (15097) opened to sterile field. 13:22:13 ACIST Manifold (07289) opened to sterile field. 13:22:13 Bag Decanter (2002S) opened to sterile field. 13:22:13 Sterile Angiographic Pack opened to sterile field. 13:22:16 Tegaderm 4 x 4 (1626W) opened to sterile field. 13:22:22 Alarms reviewed by R. N. 13:22:23 Sharps counted by scrub and verified by R.N. 13:22:26 Right groin area was prepped with chlora-prep and draped in sterile fashion 13:36:19 [place] CRNA present and monitoring patient for TIVA. 13:44:35 Heparin Flush Bag (1000units/500ml NS) 3 bags added to field was administered by Stanislaw Mccall MD; used for procedure; 13:45:13 Lidocaine 1% 20ml vial added to field was administered by Stanislaw Mccall MD; for local anesthetic; 13:53:28 --------ALL STOP TIME OUT------ 13:53:29 Final Timeout: patient, procedure, and site verified with staff and physician. All members of the team are in agreement. 13:53:30 Right groin site verified by team. 13:53:36 Maximum allowable Isovue 300 dose 300ml. Physician notified. (300ml for normal creatinines. For patients with creatinine of 1.7 or higher multiply weight(kg) x 5 divided by creatinine.) 13:53:41 Fire Safety Assessment: A--An alcohol-based skin anteseptic being used preoperatively., C--Open oxygen or nitrous oxide is being used. 13:53:45 Sedation plan: General Anesthesia Medication:General Anesthesia 13:53:53 Procedure started. 13:53:58 Local anesthetic to LEFT femoral artery with Lidocaine 1% by Stanislaw Mccall MD.INITIAL ACCESS ONLY 13:56:36 SHEATH 5FR Nicholson (RPM451) opened to sterile field. 13:56:37 Micropuncture VSI 4FR kit opened to sterile field. 13:56:39 DOC .035 wire (Y38305) opened to sterile field. 13:57:03 TUBING Contrast Injection High Pressure (LSQ120X) opened to sterile field. 14:11:52 NITINOL .018 80cm wire (C246548) opened to sterile field. 14:12:24 Angiodynamics Omniflush 5Fr 65cm (52656978) opened to sterile field. 14:13:24 GLIDE WIRE ANGLE 180cm (TZ0526) opened to sterile field. 14:13:35 TORQUE DEVICE PLASTIC .038 ( TD01) opened to sterile field. 14:18:27 A 5 Fr sheath was inserted into the Left Femoral artery 14:21:36 A AngioQuantagen BiotechnamvBrand SOS OMNI 2 NON B 5FR 65CM catheter ([id number]) was advanced over the wire and used for . 14:22:29 Cook LUCINA 1 6FR. Guide sheath opened to sterile field. 14:22:37 Sheath upsized to a 6 Fr Mid-Length. 14:24:02 GLIDE WIRE Super Stiff Angled 260cm (MC3868) opened to sterile field. 14:25:16 GLIDE CATHETER 5FR ANGLED 65cm (CG507) opened to sterile field. 14:26:53 GLIDE WIRE ANGLE 180cm (DS8420) opened to sterile field. 14:30:08 FRAIRE 260 wire (K97308) opened to sterile field. 14:37:30 INFLATOR BasixTOUCH (XJ9352) opened to sterile field. 14:42:41 Inflate balloon Inflation number: 1 A Evercross 4 x 2 x 135 Balloon ([id number]) was prepped and advanced across the Proximal Superior Mesenteric, then inflated to 16 BETTY for 0:57 (min:sec). 14:46:01 Heparin Bolus 4000 units I.V. was administered by Jovanna Sharp RN; for anticoagulation; 14:53:15 Inflate balloon Inflation number: 2 A Evercross 4 x 4 x 135 Balloon ([id number]) was prepped and advanced across the Proximal Superior Mesenteric, then inflated to 16 BETTY for 0:56 (min:sec). 14:56:23 Place stent Inflation Number: 3 A Visipro 6 x 27 x 135 Stent ([id number]) was prepped and advanced across the Proximal Superior Mesenteric. The stent was deployed at 0 BETTY for 0:00 (min:sec). 15:02:13 GLIDE CATHETER 5FR COBRA 65cm (CG502) opened to sterile field. 15:04:47 A DIAGNOSTIC IMT 5Fr Catheter ([id number]) was advanced over the wire an d used for . 15:20:35 Heparin Bolus 2000 units I.V. was administered by Jovanna Sharp RN; for anticoagulation; 15:26:10 Procedure ended.(Physican Out) 15:26:35 Contrast amount:Isovue 300 195ml. 15:27:02 Fluoroscopy time 00.00 minutes. 15:27:08 Fluoroscopy dose: 1456 mGy 15:27:08 Flurop Dose total: 1456 16:04:18 Insertion/operative site no bleeding no hematoma. 16:04:25 Post-op/insertion site Left Femoral artery dressed using a 4 x 4 and Tegaderm. 16:04:50 Procedure and supply charges have been captured, reviewed, submitted an d are correct. 16:04:51 Post procedure instruction explained to patient.Patient verbalizes understanding. 16:04:57 Report given to Other. 16:05:00 Patient transfered to Other with Stretcher. Intervention Summary Intervention Notes Time ActionType Lesion and Equipment Used Action# Pressure Duration Attributes 14:42:41 Inflate Proximal Evercross 4 x 2 x 1 16 00:57 balloon Superior 135 Balloon Mesenteric ([id number]) 14:53:15 Inflate Proximal Evercross 4 x 4 x 2 16 00:56 balloon Superior 135 Balloon Mesenteric ([id number]) 14:56:23 Place stent Proximal Visipro 6 x 27 x 3 0 00:00 Superior 135 Stent Mesenteric ([id number]) Device Usage Item Name Manufacture Quantity Catalog Number Hospital Part Curr ent Minimal Lot# / Charge Number Stock Stock Serial# Code ACIST Syringe Acist Medical 1 73274 745397 824377 2513 68 20 (37342) Systems Inc ACIST Hand Acist Medical 1 58128 293235 014134 6896 96 5 Control (92783) Systems Inc ACIST Manifold Acist Medical 1 78748 703832 145036 3318 13 5 (04118) Systems Inc Bag Decanter Microtek 1 685763 45628 9869 86 5 (2002S) Anygma Inc. Sterile Cardinal 1 [id number] 287400 4163 61 5 Angiographic Pack Health Tegaderm 4 x 4 3M 1 1626W 430503 748731 0559 23 5 (1626W) SHEATH 5FR Terumo 1 OGU473 228569 811239 1195 34 5 Nicholson (JEF164) Micropuncture VSI VSI VASCULAR 1 7266V 047182 2476 19 5 4FR kit SOLUTIONS DOC .035 wire [employer] 1 H12093 875958 6504 90 5 (F77195) TUBING Contrast [facility] 1 IUE274U 397819 404058 4953 41 5 Injection High Pressure (BPO542S) NITINOL .018 80cm Medtronic 1 I354279 352562 6477 06 5 [id number] wire (B830667) Angiodynamics Angiodynamics 1 23256859 199963 798351 0624 41 5 Omniflush 5Fr 65cm (17746131) GLIDE WIRE ANGLE Terumo 2 ON8861 124952 144798 5366 24 5 180cm (LK3089) TORQUE DEVICE Salley 1 TD01 542276 429212 8198 36 5 PLASTIC .038 ( Scientific TD01) Angiodynamics SOS Angiodynamics 1 64694808 851136 25926 9999 09 5 OMNI 2 NON B 5FR 65CM catheter (80559549) Cook LUCINA 1 6FR. Cook Medical 1 T72326 211989 4420 69 5 9024872 Guide sheath GLIDE WIRE Super Terumo 1 TP5174 731263 620172 9618 47 5 Stiff Angled 260cm (IF6532) GLIDE CATHETER Terumo 1 CG507 471155 5440 21 5 5FR ANGLED 65cm (CG507) FRAIRE 260 wire [employer] 1 C01350 059741 56814 9995 86 5 (N96463) INFLATOR [facility] Medical 1 DZ3880 594219 091742 0375 77 5 BasixTOUCH (TM8418) Evercross 4 x 2 x Medtronic 1 [id number] 284622 397492 7500 97 5 [id number] 135 Balloon ([id number]) Evercross 4 x 4 x Medtronic 1 [id number] 768759 204595 2041 93 5 J248846 135 Balloon ([id number]) Visipro 6 x 27 x Medtronic 1 FXU12-18-96-298 150866 889507 9759 98 5 Y277204 135 Stent (OWY73-15-55-946) GLIDE CATHETER Terumo 1 CG502 739242 4982 18 5 5FR COBRA 65cm (CG502) DIAGNOSTIC IMT Salley 1 [id number] 346758 245631 4221 6 5 [id number] 5Fr Catheter Scientific (037840127) Signature Audit [place] Stage Time Signature Unsigned Intra-Procedure 01/22/2019 Quoc 4:05:35 PM Breezy RT (R) (CV) Signatures Monitor : Quoc Signature : Cheriield RT Date : Time : [place] [place] [address]
--- NOTE | ~2019-01-22 | HEMODYNAMI ---
PATIENT:ANAYELI CUMMINGS MEDICAL RECORD: [id number] : 52 LOCATION:[place] [address] ADMISSION DATE: 01/22/19 Generatedon:01/23/201910:31 Patient name: ANAYELI CUMMINGS Patient #: [id number] SSN : : 1950 Date of study: 01/23/2019 Page: Of Hemodynamic Procedure Report Patient Data Patient Demographics Procedure consent was obtained First Name: ANAYELI Gender: Female Last Name: EMILIANO : 1950 [place] Initial: JL Age: 68 year(s) Patient #: [id number] Race: Unknown Additional ID: [id number] Contact details [address]: [address] [place] [address] TRAIL State: [place] City: [place] Zip code: [address] Past Medical History Allergies Allergen Reaction Date Comments Reported Penicillins 01/05/2019 Admission Admission Data Admission Date: 01/22/2019 Admission Time: 17:30 Room #: [facility] Procedure Procedure Types Cath Procedure Peripheral Cath Diagnostic Procedure Miscellaneous Procedure Description Procedure Date Procedure Date: 01/23/2019 Procedure Start Time: 9:10 Procedure Staff Name Function Jackson North MD Performing Physician Quoc Tijerina RT Monitor AZRA ARENAS RT Scrub Odalys Rogers RN Nurse Jovanna Sharp RN Nurse Procedure Data Cath Procedure Fluoroscopy Diagnostic fluoroscopy Total fluoroscopy Time: 9 time: 9 min min Diagnostic fluoroscopy Total fluoroscopy dose: 677 dose: 677 mGy mGy Contrast Material Contrast Material Type Amount (ml) Isovue 300 60 Diagnostic catheters Device Type Used For End Catheter Placement DIAGNOSTIC IMT 5Fr Catheter ([id number]) Procedure Medications Medication Administration Route Dosage Fentanyl I.V. 100 mcg Heparin Flush Bag added to field 3 bags (1000units/500ml NS) Ancef (1Gm/50ml NS) I.V.P.B Versed I.V. 2 mg Benadryl I.V. 50 mg Hemodynamics Rest Heart Rate: 115 (bpm) Snapshots Pre Cath Intra NCS Post Cath Vital Signs Time Heart Resp SPO2 etCO2 NIBP (mmHg) Rhythm Pain Sedation Rate (ipm) (%) (mmHg) Status Level (bpm) 9:05:21 115 17 88 9.7 145/67(127) NSR 0 (11) 10(A) , No pain 9:09:43 115 16 15.7 162/70(103) NSR 0 (11) 8(A) , No pain 9:14:43 122 15 15 Measuring NSR 0 (11) 8(A) , No pain 9:16:06 118 2 1.5 Time NSR 0 (11) 8(A) Exceeded , No pain 9:19:13 116 11 83 0 119/59(85) NSR 0 (11) 10(A) , No pain 9:23:20 121 11 84 8.2 121/66(104) NSR 0 (11) 8(A) , No pain 9:28:19 120 11 100 9 Measuring NSR 0 (11) 8(A) , No pain 9:29:35 120 10 98 27.7 115/62(94) NSR 0 (11) 8(A) , No pain 9:33:43 116 11 99 9.7 128/73(105) NSR 0 (11) 8(A) , No pain 9:37:55 114 11 100 9 118/61(94) NSR 0 (11) 10(A) , No pain 9:42:09 112 11 100 10.5 134/59(97) NSR 0 (11) 8(A) , No pain 9:46:29 109 11 100 10.5 129/56(84) NSR 0 (11) 8(A) , No pain 9:50:43 106 10 100 6.7 134/69(112) NSR 0 (11) 8(A) , No pain 9:55:03 107 11 100 9.7 116/62(99) NSR 0 (11) 8(A) , No pain 9:59:15 107 10 100 6.7 125/66(89) NSR 0 (11) 8(A) , No pain 10:03:35 109 16 100 3.7 145/53(99) NSR 0 (11) 8(A) , No pain 10:07:47 103 15 1.5 143/76(101) NSR 0 (11) 8(A) , No pain 10:12:46 107 20 4.5 Measuring NSR 0 (11) 8(A) , No pain 10:12:58 107 16 100 3.7 121/67(100) NSR 0 (11) 8(A) , No pain 10:17:13 109 13 3.7 134/68(94) NSR 0 (11) 8(A) , No pain 10:21:26 106 13 4.5 138/72(114) NSR 0 (11) 8(A) , No pain 10:25:45 108 15 4.5 145/72(118) NSR 0 (11) 8(A) , No pain 10:30:03 105 15 6.7 153/73(105) NSR 0 (11) 8(A) , No pain Medications Time Medication Route Dose Verified Delivered Reason Notes Effec tiveness by by 9:06:53 Fentanyl I.V. 100 Jackson Odalys Per mcg Mary Anne Rogers RN physician 9:07:11 Heparin Flush added 3 Jackson Odalys Per Bag to bags Mary Anne Rogers RN physician (1000units/500ml field NS) 9:08:16 Ancef (1Gm/50ml I.V.P.B Jackson Nugent used for NS) Mary Anne Sharp RN procedure MD 9:15:08 Versed I.V. 2 mg Jackson Morrow for Mary Anne Rogers RN sedation 9:16:13 Benadryl I.V. 50 mg Jackson Nugent used for Mary Anne Sharp RN procedure Procedure Log Time Note 8:48:06 Jovanna Sharp RN sent for patient. Start room use. 8:54:38 Use device set IR Diagnostic 8:54:39 Bag Decanter (2002S) opened to sterile field. 8:54:39 Sterile Angiographic Pack opened to sterile field. 8:54:40 Tegaderm 4 x 4 (1626W) opened to sterile field. 8:54:47 Time tracking: Regular hours (M-F 7:00 - 5:00) 8:54:51 Plan of Care:Hemodynamics will remain stable., Cardiac rhythm will remain stable., Comfort level will be maintained., Respiratory function will remain adequate., Patient/ family verbilizes understanding of procedure., Procedure tolerated without complication., Recovers from procedure without complications.. 8:54:55 Patient received from CVICU to IR Alert and oriented. Tansferred to table in Supine position. 8:54:57 Correct patient and procedure confirmed by team. 8:54:58 Warm blankets applied, and travis hugger turned on for patient comfort. 8:54:59 ECG and BP/O2 sat monitors applied to patient. 8:55:01 Signed procedure consent form obtained from patient. 8:55:03 Full Disclosure recording started 8:55:03 - 8:55:09 H&P Date Dictated: 01/23/2019 Within 30 days and on chart.. 8:55:09 Pre-procedure instructions explained to patient. 8:55:10 Pre-op teaching completed and patient verbalized understanding. 8:55:12 Family unavailable. 8:55:14 Patient NPO since Midnight. 8:55:18 Is the patient allergic to Iodine/contrast media? No. 8:55:19 Is patient on blood thinner?Yes 8:55:22 ACC The patient was administered the following blood thiners within the last 24 hours: ACCHeparin 8:58:48 Patient diabetic? No. 8:58:50 ----Pre-sedation anethsthesia assessment.---- 8:58:53 Previous problem with sedation/anesthesia? No ? 8:58:54 Snore? Yes 8:58:56 Sleep apnea? No 8:59:01 Deviated septum? No 8:59:03 Opens mouth fully? Yes 8:59:05 Sticks out tongue? Yes 8:59:07 Airway obstruction? No ? 8:59:12 Pre procedure: right dorsailis pedis pulse Doppler 8:59:16 Pre procedure: left dorsailis pedis pulse None 8:59:20 Pre procedure: right posterior tibial pulse 4+ Full; bounding; can't obliterate 8:59:23 Pre procedure: left posterior tibial pulse None 8:59:29 Sharps counted by scrub and verified by R.N. 8:59:30 Alarms reviewed by R. N. 8:59:35 Left groin area was prepped with betadine and draped in sterile fashion 9:04:16 Vital chart was started 9:04:17 Baseline sample Acquired. 9:06:53 Fentanyl 100 mcg I.V. was administered by Odalys Rogers RN; Per physician; 9:07:11 Heparin Flush Bag (1000units/500ml NS) 3 bags added to field was administered by Odalys Rogers RN; Per physician; 9:07:32 IV patent on arrival in left forearm with 0.9% NaCl at O. 9:08:16 Ancef (1Gm/50ml NS) I.V.P.B was administered by Jovanna Sharp RN; used for procedure; 9:08:50 Physician arrived 9:08:51 Physician arrived 9:08:52 --------ALL STOP TIME OUT------ 9:08:53 Final Timeout: patient, procedure, and site verified with staff and physician. All members of the team are in agreement. 9:08:55 Left groin site verified by team. 9:09:01 Fire Safety Assessment: A--An alcohol-based skin anteseptic being used preoperatively., C--Open oxygen or nitrous oxide is being used. 9:09:09 Maximum allowable Isovue 300 dose 300ml. Physician notified. (300ml for normal creatinines. For patients with creatinine of 1.7 or higher multiply weight(kg) x 5 divided by creatinine.) 9:09:15 Sedation plan: IV Moderate Sedation Medication:Versed, Fentanyl 9:10:21 Procedure started. 9:10:28 Local anesthetic to left femerol artery with Lidocaine 1% by Jackson North MD.INITIAL ACCESS ONLY 9:10:41 BENTSON 145cm wire (Z69394) opened to sterile field. 9:10:50 SHEATH 6FR Hye (WHR465) opened to sterile field. 9:12:02 A DIAGNOSTIC IMT 5Fr Catheter ([id number]) was advanced over the wire an d used for . 9:15:08 Versed 2 mg I.V. was administered by Odalys Rogers RN; for sedation; 9:16:13 Benadryl 50 mg I.V. was administered by Jovanna Sharp RN; used for procedure; 9:19:57 [facility] .035 260 glide wire (K16500) opened to sterile field. 9:28:17 INFLATOR BasixTOUCH (MK4671) opened to sterile field. 9:28:24 FRAIRE 260 wire (L47155) opened to sterile field. 9:34:07 Inflate balloon Inflation number: 1 A Evercross 7 x 8 x 135 Balloon ([id number]) was prepped and advanced across the Undefined1, then inflated to 10 BETTY for 2:08 (min:sec). 9:44:29 EVERFLEX 8 x 40 Stent ([id number]) was deployed across Undefined1 . 10:08:08 CENTRAL LINE PLACED LT GROIN 10:08:11 EXOSEAL 6Fr (EX600) opened to sterile field. 10:10:52 Procedure ended.(Physican Out) 10:11:07 Fluoroscopy time 09.00 minutes. 10:11:11 Fluoroscopy dose: 677 mGy 10:11:11 Flurop Dose total: 677 10:11:13 Sharps counted by scrub and verified by R.N. 10:11:16 Insertion/operative site no bleeding no hematoma. 10:11:28 Post left femerol artery:stable 10:11:42 Post Procedure Pulses reassessed and unchanged 10:11:55 Post procedure instruction explained to patient.Patient verbalizes understanding. 10:11:59 Procedure and supply charges have been captured, reviewed, submitted an d are correct. 10:13:27 Contrast amount:Isovue 300 60ml. 10:30:59 Post procedure: right dorsailis pedis pulse Doppler. 10:31:02 Post procedure: right posterior tibial pulse Doppler. 10:31:04 Post procedure: right posterior tibial pulse Doppler. 10:31:07 Post procedure: left posterior tibial pulse Doppler. 10:31:13 Report given to CVICU. 10:31:17 Patient transfered to CVICU with Bed. 10:31:41 Vital chart was stopped Intervention Summary Intervention Notes Time ActionType Lesion and Equipment Used Action# Pressure Duration Attributes 9:34:07 Inflate Undefined1 Evercross 7 x 8 1 10 02:08 balloon x 135 Balloon ([id number]) 9:44:29 Deploy self Undefined1 EVERFLEX 8 x 40 1 expanding Stent stent ([id number]) Device Usage Item Name Manufacture Quantity Catalog Number [facility] zamudio Minimal Lot# / Charge Number Stock Stock Serial# Code Bag Miya Microtek 1 [id number] 96170 289678 5 () Medical Inc. Sterile Cardinal 1 [id number] 078720 033649 5 Angiographic Health Pack Tegaderm 4 x 4 3M 1 1626W 356099 316158 379261 5 (1626W) BENTSON 145cm Cook Medical 1 Q48797 719024 577444 5 wire (R18014) SHEATH 6FR Terumo 1 KGN467 759878 117832 686297 40 Hye (CHI896) DIAGNOSTIC IMT [place] 1 [id number] 600998 546994 96876 5 [id number] 5Fr Catheter Scientific (565481260) ROADRUNNER .035 Cook Medical 1 A33740 670192 769557 637717 5 6118357 260 glide wire (X64198) INFLATOR [employer]it 1 MH9081 400086 779384 505019 5 BasixTOUCH Medical (NN3582) FRAIRE 260 wire Cook Medical 1 Z21530 891025 85853 721368 5 (L56856) Evercross 7 x 8 Medtronic 1 [id number] 176845 922408 462878 5 [id number] x 135 Balloon ([id number]) EVERFLEX 8 x 40 Medtronic 1 [id number] 783112 772565 642411 5 [id number] Stent U080723 ([id number]) EXOSEAL 6Fr Cardinal 1 EX600 826000 184708 525265 10 [id number] (EX600) Health Signature Audit [place] Stage Time Signature Unsigned Intra-Procedure 01/23/2019 Quoc 10:31:37 AM Breezy RT (R) (CV) Signatures Monitor : Quoc Signature : Breezy RT Date : Time : [facility] [address] [place] [address]
[~2019-01-22 10:40] MED LIST changes: +BAYER CHEWABLE81 MG PO; +PLAVIX75 MG
[2019-01-22 10:59] LABS: BASOPHILS 0.9 % (0-2); EOSINOPHILS 3.5 % (0-7); HEMATOCRIT 39.6 % (36.0-48.0); HEMOGLOBIN 13.2 g/dL (12-16); IMMATURE GRANULOCYTES 0.1 % (0-5); LYMPHOCYTES 14.8 % (15-50); MCH 32.5 pg (26.0-34.0); MCHC 33.3 g/dL (31.0-37.0); MCV 97.5 fL (80.0-100.0); MEAN PLATELET VOLUME 10.1 fL (7.4-10.4); MONOCYTES 7.1 % (2-11); NEUTROPHILS 73.6 % (40-80); PLATELET COUNT 316 10x3/uL (130-400); RBC 4.06 10x6/uL (4.00-5.40); RDW 14.6 % (11.5-14.5); WBC 7.6 10x3/uL (4.8-10.8)
[2019-01-22 11:20] LABS: ANION GAP 14.1 mmol/L (8-16); CALCIUM 10.3 mg/dL (8.5-10.1); CARBON DIOXIDE 23.8 mmol/L (21.0-32.0); CREATININE - SERUM 1.3 mg/dL (0.6-1.3); POTASSIUM - SERUM 3.9 mmol/L (3.5-5.1)
[2019-01-22 11:43] LABS: APTT 22.8 SECONDS (22.8-39.4)
[2019-01-22 11:44] LABS: INR 0.93 (0.85-1.17)
[2019-01-22 19:16] LABS: MCH 32.6 pg (26.0-34.0); MCHC 33.1 g/dL (31.0-37.0); MCV 98.8 fL (80.0-100.0); MEAN PLATELET VOLUME 9.9 fL (7.4-10.4); RDW 14.6 % (11.5-14.5)
[2019-01-22 19:21] LABS: HEMATOCRIT 23.9 % (36.0-48.0); HEMOGLOBIN 7.9 g/dL (12-16); RBC 2.42 10x6/uL (4.00-5.40); WBC 12.3 10x3/uL (4.8-10.8)
--- NOTE | 2019-01-22 20:05 | NUR ---
Patient transferred to [facility] via bed with OR staff present, assessment completed per flowsheet. Patient lethargic, awakens to stimuli but returns to sleep quickly. S1/S2 noted NSR on telemetry with HR 84, rythmic and regular. Breathing is shallow/unlabored on 10L via Simple mask with O2 sat 99%, lung sounds clear throughout. R groin incision open to air with no bleeding/drainage, JADA x1 with moderate bloody drainage. L groin cath sheath secured, dressing CDI. Skin cool/dry with upper pulses palpable and lower strong doppler, cap refill < 3 sec. Patient c/o L lower leg pain 2/10, no swelling/redness noted with PRN medication already given in OR. Repositioned for comfort, no further needs and will continue to monitor.
[2019-01-22 20:17] LABS: INR 1.43 (0.85-1.17); PROTIME 16.9 SECONDS (11.6-15.0)
[2019-01-22 20:18] LABS: APTT > 200.0 SECONDS (22.8-39.4)
--- NOTE | 2019-01-22 21:00 | NUR ---
Family at bedside for visitation, discussed post-op care/medications with all questions answered to satisfaction. Lower extremitity pulses weak palpable with skin warm/dry. C/O L lower leg pain 4/10 with no edema/redness noted, repositioned with little relief. Titrating Neosynephrine per orders, will continue to monitor.
--- NOTE | 2019-01-22 22:50 | NUR ---
Spoke to Dr Daniel via phone, updated on current patient status with new orders received. 500ml NS bolus to be given / Nitro paste Q12H to R toes / Hydrocodone 5mg 1-2 tabs Q4H for pain.
--- NOTE | 2019-01-22 23:00 | NUR ---
Patient laying in bed with eyes closed, reassessment completed per flowsheet. Patient AO x4, answers appropriately/follows instructions. S1/S2 noted Sinus Tach on telemetry with HR 102, rythmic and regular. Breathing is shallow/unlabored on 4L via NC with O2 sat 96%, lung sounds clear bilateral upper and mid with diminished lower. R groin site soft to palpation with no bleeding/drainage noted, JADA x1 with small bloody drainage. L groin cath sheath secured, dressing CDI. C/O L leg aching 7/10 with no swelling/localized redness noted, PRN medication already given. No further needs at this time, see flowsheet for details. All VSS and will continue to monitor.
--- NOTE | 2019-01-22 23:20 | NUR ---
Spoke to Dr Mccall via phone, updated on patient status with new orders received. CBC/CMP to be performed in AM, orders to transfuse 1 unit PRBC for Hgb < 7.
--- NOTE | 2019-01-22 23:49 | NUR ---
Spoke to Dr Daniel via phone, updated on current status and patient c/o pain. Additional dose or PRN medication given as ordered, patient to be made NPO at 0000.
[2019-01-23] VITALS (67 sets, daily range): BP systolic 76–137; BP diastolic 30–65; Ht 170.2 cm; Wt 83.8 kg
--- NOTE | 2019-01-23 | NUR ---
Patient placed on NPO status per orders.
[2019-01-23 00:57] LABS: MCH 31.9 pg (26.0-34.0); MCHC 32.4 g/dL (31.0-37.0); MCV 98.4 fL (80.0-100.0); MEAN PLATELET VOLUME 10.1 fL (7.4-10.4); RDW 14.8 % (11.5-14.5); WBC 19.9 10x3/uL (4.8-10.8)
[2019-01-23 00:59] LABS: RBC 1.88 10x6/uL (4.00-5.40)
[2019-01-23 01:00] LABS: HEMATOCRIT 18.5 % (36.0-48.0)
--- NOTE | 2019-01-23 01:00 | NUR ---
Hemogram resulted with Hgb < 7, Blood bank to crossmatch 1 unit PRBC per orders. Attempted to to site another IV for infusion, unsuccessful after 4 attempts. Second RN attempted 6 times without success. Patient pale and slightly diaphoretic, answers appropriately with short pauses before answering. Patient c/o L leg aching 4/10 with no localized redness/swelling noted, no bruising visible with vericose veins observed. Will continue to monitor.
--- NOTE | 2019-01-23 02:00 | NUR ---
1 unit PRBC initiated to L hand PIV, no immediate s/s of reaction. Patient still slightly pale, c/o L leg pain 03/21. Dr Daniel paged to update on patient status, awaiting return call.
--- NOTE | 2019-01-23 02:40 | NUR ---
Unable to reach Dr Daniel, patient moaning and c/o L lower leg pain 10/10. Attempted repositioning with no relief, IR paged. Spoke to Dr Martinez via phone with new orders received, one time Hydromorphone 0.25mg given as ordered. L hand PIV appears slightly bruised, new IV access attempted by 3rd RN x5 with no success. Will continue to monitor.
[2019-01-23 02:42] LABS: HEMATOCRIT 24.5 % (36.0-48.0)
--- NOTE | 2019-01-23 03:00 | NUR ---
Unit PRBC completed, no s/s or reaction. L hand PIV appears infiltrated, IV fluids held with new attempt to site IV ongoing.
--- NOTE | 2019-01-23 03:00 | NUR ---
Reassessment completed per flowsheet, patient resting in bed with eyes closed. S1/S2 noted NSR on telemetry with HR 98, rythmic and regular. Breathing is shallow/unlabored on 4L via NC with O2 sat 95%, lung sounds clear bilateral upper and mid with diminished lower. R groin incision with small bruising noted, no bleeding/drainage. R groin JADA x1 with small bloody drainage, compressed. L groin cath sheath secured, dressing CDI. Patient c/o aching L leg 10/22 post PRN medication, no localized redness/swelling noted. Upper pulses palpable with lower pulses weak, skin warm/dry. Repositioned for comfort, no further needs and will continue to monitor.
--- NOTE | 2019-01-23 03:15 | NUR ---
Dr Rodrigez from ER to place R EJ PIV at bedside, successful x1 attempt. Patent with IV fluid changed to new site, patient appears more alert/responsive. Skin warm/dry with pallor WNL, states L leg pain "much better" post PRN medication. Will continue to monitor.
--- NOTE | 2019-01-23 04:10 | NUR ---
Mold Designer present to draw AM labs/APTT, will adjust rate per protocol when resulted.
--- NOTE | 2019-01-23 05:15 | NUR ---
No results available for APTT, called lab and informed having difficulties with machine preventing testing. WIll adjust Heparin GTT when results available.
[2019-01-23 05:30] LABS: HEMATOCRIT 27.6 % (36.0-48.0); HEMOGLOBIN 9.1 g/dL (12-16); MCH 31.5 pg (26.0-34.0); MCV 95.5 fL (80.0-100.0); MEAN PLATELET VOLUME 10.7 fL (7.4-10.4); PLATELET COUNT 257 10x3/uL (130-400); RBC 2.89 10x6/uL (4.00-5.40); RDW 14.7 % (11.5-14.5); WBC 28.9 10x3/uL (4.8-10.8)
[2019-01-23 05:31] LABS: ALBUMIN 2.1 g/dL (3.4-5.0); BILIRUBIN - TOTAL 0.22 mg/dL (0.2-1.3); CREATININE - SERUM 1.5 mg/dL (0.6-1.3); POTASSIUM - SERUM 4.1 mmol/L (3.5-5.1); PROTEIN - SERUM 4.2 g/dL (6.4-8.2)
[2019-01-23 05:35] LABS: ANION GAP 15.8 mmol/L (8-16); CARBON DIOXIDE 17.3 mmol/L (21.0-32.0)
[2019-01-23 05:51] LABS: INR 1.68 (0.85-1.17); PROTIME 19.2 SECONDS (11.6-15.0)
[2019-01-23 05:56] LABS: LYMPHOCYTES 3 % (15-50); MONOCYTES 7 % (2-11); NEUTROPHILS 85 % (40-80); PLATELET ESTIMATE NORMAL
[2019-01-23 06:04] LABS: APTT > 200.0 SECONDS (22.8-39.4)
--- NOTE | 2019-01-23 07:30 | NUR ---
0730 PT RECIEVED ALERT AND ORIENTED, BP LOW, TITRATED SHABBIR PER PARAMETERS, R GROIN FIRMPULSE PALPABLE, EMPTIED JADA, LLE UNABLE TO DOPPLER PULSE, IR AND DR HULL NOTIFIED
--- NOTE | 2019-01-23 07:49 | NUR ---
LARGE FIRM R GROIN HEMATOMA NOTED, DR DELLA PÉREZ, PT STATED CANNOT FEEL LLE, DIFFICULTY DOPPLERING WEAK LLE PULSE, RLE PULSE EASILY DOPPLERED, LIGIA IN IR NOTIFIED STATED SHE WOULD NOTIFY DR HERNANDEZ
--- NOTE | 2019-01-23 08:35 | NUR ---
ELIN FROM IR UNABLE TO DOPPLER LLE PULSE, DR HULL NOTIFIED OF BRIGHT RED BLOOD FROM DRAIN WITH PT COMPLAINING OF R FLANK PAIN AND PAIN TO R GROIN, BRII VASCULAR ACCESS UNABLE TO INSERT PICC, PIV TO LFA INSERTED, DR HULL THEN TO ROOM WITH ORDERS FOR PRBC, CT. SHELBY WITH IR IN ROOM, SPOKE WITH JOHN ORTIZ WITH CT ALSO IN ROOM, PT WENT WITH SHELBY NURSE FROM IR AND JOHN FROM CT TO GET CT AND TO IR, DR HULL TO PUT IN CVL WHILE THEREPRBC INITIATED AT TIME OF TRANSFER,
[2019-01-23 09:49] LABS: BASOPHILS 0.3 % (0-2); EOSINOPHILS 0 % (0-7); IMMATURE GRANULOCYTES 0.7 % (0-5); LYMPHOCYTES 6.7 % (15-50); MCH 32.3 pg (26.0-34.0); MCHC 34.3 g/dL (31.0-37.0); MCV 94.3 fL (80.0-100.0); MEAN PLATELET VOLUME 10.6 fL (7.4-10.4); MONOCYTES 7.5 % (2-11); NEUTROPHILS 84.8 % (40-80); RDW 15.2 % (11.5-14.5)
[2019-01-23 09:53] LABS: ALBUMIN 1.6 g/dL (3.4-5.0); ANION GAP 18.7 mmol/L (8-16); BILIRUBIN - TOTAL 0.12 mg/dL (0.2-1.3); CARBON DIOXIDE 12.5 mmol/L (21.0-32.0); CREATININE - SERUM 1.4 mg/dL (0.6-1.3); POTASSIUM - SERUM 4.2 mmol/L (3.5-5.1); PROTEIN - SERUM 3.2 g/dL (6.4-8.2)
[2019-01-23 09:54] LABS: CALCIUM 6.4 mg/dL (8.5-10.1); HEMATOCRIT 21.6 % (36.0-48.0); HEMOGLOBIN 7.4 g/dL (12-16); PLATELET COUNT 173 10x3/uL (130-400); RBC 2.29 10x6/uL (4.00-5.40); WBC 18.8 10x3/uL (4.8-10.8)
[2019-01-23 10:52] LABS: APTT 180.7 SECONDS (22.8-39.4)
--- NOTE | 2019-01-23 11:14 | NUR ---
PT ARRIVED TO ROOM APPROX 1100, 130ML EMPTIED FROM JADA, WITHIN TWO MINUTES ANOPTHER 90 EMPTIED, DR HULL NOTIFIED, ORDERS FOR ANOTHER UNIT PRBC
[2019-01-23 11:27] LABS: INR 1.67 (0.85-1.17); PROTIME 19.7 SECONDS (11.6-15.0)
--- NOTE | 2019-01-23 12:38 | NUR ---
PT TO OR NOW
--- NOTE | 2019-01-23 12:59 | NUR ---
1142 DR HULL IN UNIT, STATED HE WILL TAKE PT TO OR, SPOKE WITH PT ON TELEPHONE TO OBTAIN CONSENT PT HAS HAD NARCOTICS IN IR
--- NOTE | 2019-01-23 13:04 | NUR ---
REPORT GIVEN TO Jenny TREVIZO RN
--- NOTE | 2019-01-23 13:51 | NUR ---
DR HULL SPOKE THE GRAND DAUGHTER. DR HULL STATED TO DC THE NITRO PASTE
--- NOTE | 2019-01-23 15:30 | NUR ---
PT ARRIVED BACK INTO THE UNIT. HOOKED TO ICU MONITORS. NSR ON THE MONITOR. PT SLIGHLY HYPOTENSIVE. SHABBIR INITIATED FOR BP. SEE IV FLOW SHEET. RIGHT RADIAL REBECCA NOTED. WRIST PROTECTOR IN PLACE. CAP REFILL <3 SECONDS. RIGHT EJ PIV NOTED. PATENT. RIGHT GROIN INCISION NOTED WELL APPROXIMATED WITH A SINGLE JADA DRAIN COMPRESSED WITH BLOODY DRAINAGE NOTED. RIGHT GROIN SOFT TO PALPATATION. LEFT GROIN NOTED TO HAVE A TRIPLE LUMEN CVL DRESSING C/D/I. SMALL HARD SPOT NOTED TO LEFT GROIN. THIS IS A OLD HEMATOMA FROM [facility] SITE ACCORDING TO DR KNIGHT. FC NOTED WITH CLEAR YELLOW URINE. BILATERAL LEGS WARM AND THE SAME COLOR. BILATERAL DORALIS PEDIS AND POSTERIOR TIBIAL PULSES DOPPLERABLE. PT DENIES PAIN AT THIS TIME. DRESSING APPLIED TO RIGHT GROIN INCISION. CALL LIGHT IN REACH. WILL CONT POC.
--- NOTE | 2019-01-23 15:54 | NUR ---
DR KNIGHT AT THE PTS BEDSIDE SPEAKING WITH THE FAMILY. N.O FOR CBC Q 6 HOURS. CALL HIM WITH ABNORMAL RESULTS. ONCE HCO3 GTT IS COMPLETED, CHANGE FLUIDS TO NS AT 125ML/H.
[2019-01-23 16:15] LABS: BASOPHILS 0.4 % (0-2); EOSINOPHILS 0 % (0-7); IMMATURE GRANULOCYTES 0.4 % (0-5); LYMPHOCYTES 8.9 % (15-50); MCH 30.6 pg (26.0-34.0); MCHC 34.3 g/dL (31.0-37.0); MEAN PLATELET VOLUME 11.3 fL (7.4-10.4); MONOCYTES 8.6 % (2-11); NEUTROPHILS 81.7 % (40-80); RDW 14.5 % (11.5-14.5); WBC 16.1 10x3/uL (4.8-10.8)
--- NOTE | 2019-01-23 16:17 | NUR ---
PT CONT. TO DENIE PAIN. BILATEARL DP AND PT PULSES REMAIN DOPPERABLE. NO CHANGE IN THE LEFT GROIN HEMATOMA. NO HEMATOMA NOTED TO THE RIGHT GROIN. WILL CONT POC.
--- NOTE | 2019-01-23 16:27 | NUR ---
DR COSME STATED TO GET REPEAT ABG. RT NOTIFIED.
[2019-01-23 16:58] LABS: HEMATOCRIT 33.8 % (36.0-48.0); HEMOGLOBIN 11.6 g/dL (12-16); MCV 89.2 fL (80.0-100.0); PLATELET COUNT 122 10x3/uL (130-400); RBC 3.79 10x6/uL (4.00-5.40)
--- NOTE | 2019-01-23 17:10 | NUR ---
ICE CHIPS PROVIDED FOR THE PT. PT TOLERATING WELL.
--- NOTE | 2019-01-23 17:32 | NUR ---
DR HERNÁNDEZ AT THE PTS BEDSIDE. PULSES DOPPERABLE. OK TO ADVANCE TO CLEAR LIQUID AND ADVANCE TO FULL LIQUID TOLERATED.
--- NOTE | 2019-01-23 17:41 | NUR ---
DR HERNÁNDEZ AT THE PTS BEDSIDE. STRICT BEDREST UNTIL THE AM. OK TO ADVANCE CLEAR LIQUID DIET IF NEXT H&H IS STABLE.
[2019-01-23 18:35] LABS: CREATININE - SERUM 1.2 mg/dL (0.6-1.3); POTASSIUM - SERUM 4.1 mmol/L (3.5-5.1)
[2019-01-23 19:05] LABS: ANION GAP 14.2 mmol/L (8-16); CALCIUM 6.5 mg/dL (8.5-10.1); CARBON DIOXIDE 22.9 mmol/L (21.0-32.0)
--- NOTE | 2019-01-23 19:10 | NUR ---
Received patient resting in bed with eyes open, assessment completed per flowsheet. Patient AO x4, answers appropriately/follows instructions. S1/S2 noted NSR on telemetry with HR 94, rythmic and regular. Breathing is even/unlabored on room air with O2 sat 98%, lung sounds clear bilateral upper and mid with diminished lower. Abdomen is round/soft with bowel sounds active x4, non-tender. Washburn secured, clear pale yellow urine. R groin incision dressing CDI, JADA x1 with small bloody drainage. L groin previous sheath site with small firm hematoma upper, CVL with dressing CDI. Upper pulses palpable with dorsalis pedis pulses doppler, skin warm/dry with cap refill < 3 sec. States R groin/back aching 2/10 post PRN medication, repositioned with stated relief. No further needs at this time, see flowsheet for details. All VSS and will continue to monitor.
--- NOTE | 2019-01-23 19:20 | NUR ---
BEDSIDE REPORT GIVEN AT THE PTS BEDSIDE. BILATERAL DP AND PT PULSES VERIFIED WITH WITH THE ON COMING NURSE AT THE PTS BEDSIDE. HEMATOMA TO LEFT GROIN REMAINS UNCHANGED. DRESSING C/D/I. BLE COLOR THE SAME AND THE SAME TEMP. NO S/SX OF BLEEDING NOTED. VSS.
[2019-01-23 19:49] LABS: PLT FUNCT.(P2Y12) PLAVIX 237 PRU (194-418)
--- NOTE | 2019-01-23 21:00 | NUR ---
Patient family at bedside for visitation, discussed medication/post-op procedures with all questions answered to satisfaction. HS meds given without difficulty, R EJ PIV removed at patient request. Denies needs at this time, all VSS and will continue to monitor.
--- NOTE | 2019-01-23 23:00 | NUR ---
Reassessment completed per flowsheet, no changes noted from previous assessment. NSR on telemetry with HR 98, rythmic and regular. Breathing is even/unlabored on room air with O2 sat 98%, lung sounds clear bilateral upper and mid with diminished lower. R groin site dressing CDI, JADA x1 with scant bloody drainage noted. L groin CVL dressing CDI, small firm hematoma noted with no changes from previous. Upper pulses palpable with lower pulses doppler, skin warm/dry with cap refill < 3 sec. C/O acute back/R groin aching 6/10 PRN medication given and will reassess. Repositioned for comfort, see flowsheet for details. All VSS and will continue to monitor.
[2019-01-23 23:14] LABS: BASOPHILS 0.4 % (0-2); EOSINOPHILS 0 % (0-7); HEMATOCRIT 27.2 % (36.0-48.0); HEMOGLOBIN 9.4 g/dL (12-16); IMMATURE GRANULOCYTES 0.5 % (0-5); LYMPHOCYTES 8.5 % (15-50); MCH 30.9 pg (26.0-34.0); MCHC 34.6 g/dL (31.0-37.0); MCV 89.5 fL (80.0-100.0); MONOCYTES 6.4 % (2-11); NEUTROPHILS 84.2 % (40-80); PLATELET COUNT 109 10x3/uL (130-400); RBC 3.04 10x6/uL (4.00-5.40); RDW 14.9 % (11.5-14.5); WBC 14.6 10x3/uL (4.8-10.8)
[2019-01-24] VITALS (53 sets, daily range): BP systolic 69–173; BP diastolic 17–82
--- NOTE | 2019-01-24 01:00 | NUR ---
Patient resting in bed with eyes open, no s/s of distress at this time. R groin incision dressing CDI, soft to palpation with no bleedin/drainage. L groin CVL dressing CDI, small firm hematoma noted upper. R pedal pulses palpable with skin warm/dry, L pedal pulses weak palpable with skin warm/dry. All VSS and will continue to monitor.
--- NOTE | 2019-01-24 03:00 | NUR ---
Reassesment completed per flowsheet, no changes noted from previous assessment. S1/S2 noted NSR on telemetry with HR 79, rythmic and regular. Breathing is even/unlabored on room air with O2 sat 98%, lung sounds clear bilateral upper and mid with diminished lower. R groin soft to palpation with dressing CDI, L groin CVL dressing CDI. Upper pulses palpable with R lower pulse palpable, L pedal pulse weak palpable. Skin warm/dry with cap refill < 3 sec. Denies pain or other needs at this time, see flowhseet for details. All VSS and will continue to monitor.
--- NOTE | 2019-01-24 03:55 | NUR ---
Attempted to draw AM labs from L groin CVL x2 attempts, sample clotted in tubes. Requested Phlebotomy to collect venous sample.
--- NOTE | 2019-01-24 05:05 | NUR ---
AM labs uncollected at this time, called LAB again to request venous draw. Informed a fraternity adviser will be up to draw patient when available. Patient resting in bed with eyes closed, no s/s of distress at this time. RLE pulses palpable with LLE pulses weak palpable, skin warm/dry. Denies pain or other needs at this time, all VSS and will continue to monitor.
[2019-01-24 05:50] LABS: BASOPHILS 0.7 % (0-2); EOSINOPHILS 0.1 % (0-7); HEMATOCRIT 24.1 % (36.0-48.0); HEMOGLOBIN 8.4 g/dL (12-16); IMMATURE GRANULOCYTES 0.3 % (0-5); LYMPHOCYTES 11.6 % (15-50); MCH 30.8 pg (26.0-34.0); MCHC 34.9 g/dL (31.0-37.0); MCV 88.3 fL (80.0-100.0); MEAN PLATELET VOLUME 10.6 fL (7.4-10.4); MONOCYTES 10.6 % (2-11); NEUTROPHILS 76.7 % (40-80); PLATELET COUNT 104 10x3/uL (130-400); RBC 2.73 10x6/uL (4.00-5.40); RDW 15.1 % (11.5-14.5); WBC 13.8 10x3/uL (4.8-10.8)
[2019-01-24 06:48] LABS: APTT 26.5 SECONDS (22.8-39.4)
[2019-01-24 06:51] LABS: INR 1.28 (0.85-1.17); PROTIME 15.5 SECONDS (11.6-15.0)
--- NOTE | 2019-01-24 07:00 | NUR ---
PT RESTING IN BED AWAKE AND ALERT WITH LEFT GROIN CVL INFUSING NS AT 125. RIGHT UPPER LEG INCISION DRESSING CDI. LEFT AND RIGHT PEDAL PULSES PALPABLE THOUGH WEAK. LEFT RADIAL ART LINE FOR BP. PT IS AWAKE ALERT AND ORIENTED. WILL CONTINUE TO MONITOR
--- NOTE | 2019-01-24 08:34 | NUR ---
RESTARTED NEOSYNEPHRINE DRIP AT 20 MCG/MIN FOR MAP BELOW 65.
[2019-01-24 09:37] LABS: ANION GAP 16.4 mmol/L (8-16); CARBON DIOXIDE 20.3 mmol/L (21.0-32.0); POTASSIUM - SERUM 3.7 mmol/L (3.5-5.1)
[2019-01-24 09:40] LABS: CALCIUM 6.1 mg/dL (8.5-10.1)
[2019-01-24 10:06] LABS: BASOPHILS 0.3 % (0-2); EOSINOPHILS 0.2 % (0-7); HEMATOCRIT 26.4 % (36.0-48.0); HEMOGLOBIN 8.2 g/dL (12-16); IMMATURE GRANULOCYTES 0.3 % (0-5); LYMPHOCYTES 17.7 % (15-50); MCHC 31.1 g/dL (31.0-37.0); MCV 90.1 fL (80.0-100.0); MONOCYTES 5.5 % (2-11); RBC 2.93 10x6/uL (4.00-5.40); RDW 15.2 % (11.5-14.5); WBC 10.9 10x3/uL (4.8-10.8)
--- NOTE | 2019-01-24 11:49 | OP ---
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 PROCEDURE: 1. Exploration of the right common femoral artery with retrieval of intra-arterial foreign body (stent material). 2. Bovine pericardial graft patch angioplasty. 3. Nonselective arteriogram of the right external iliac artery. 4. Immediate surgeon interpretation of the radiographic images. SURGEON: Yevgeniy Hull MD TRUST AND ESTATES PARALEGAL: None. BLOOD LOSS: Please see the anesthesia sheet. DRAINS: Times 1. No radiologist was present for the beginning part of the procedure. Dr. Mccall did join me later in the procedure and we performed sequential arteriograms of the right lower extremity as well as the right pelvis and he interpreted these verbally. The only interpretation that I did regarding arteriogram was retrograde hand injection of the right external iliac artery. OPERATIVE COURSE: The patient was conveyed to the operating room emergently on 01/22/2019. This is after an emergency consultation. The patient was positioned supine. The abdomen, left thigh, and entire right lower extremity was sterilely prepped and draped. Utilizing the ultrasound, I identified the common femoral artery. An axial incision was accomplished over this. I dissected down to the superficial femoral artery, the profunda femoris artery, and the common femoral artery. There was some bleeding, high up on the common femoral artery, and I had to extend my incision cephalad. Later on, I found out this was where a 4-Ukrainian sheath had been placed earlier. An axial arteriotomy was accomplished overlying the common femoral artery and extending down onto the superficial femoral artery. Under real time fluoroscopy, I was able to visualize the stent material. A retrograde arteriogram was performed utilizing hand injection technique through the vessel loop around the common femoral artery. The cannula extended into the right external iliac artery and this was a retrograde arteriogram, which did reveal the foreign body present within either the distal right external iliac artery or the right common femoral artery. I was able to place a #4 Pan catheter and was able to pull some of the stent material down close to the arteriotomy. Eventually, I was able to use Pan catheter to deliver the stent material out into the arteriotomy and then retrieve it. OPERATIVE REPORT [id number] ANAYELI CUMMINGS We then took some x-rays of the pelvis as well as the right lower extremity to ensure that a portion of the stent had not broken off or migrated. I extended my arteriotomy. I then cut out an oval out of a bovine pericardial patch. The patch was then sewn over the arteriotomy with a running 6-0 Prolene suture. Control was released on the arteries. There was some bleeding cephalad to the arteriotomy and this is where the 4-Ukrainian sheath had been placed. This area was oversewn with horizontal mattress 6-0 Prolenes. I then reinforced the patch and the suture line with BioGlue. A 10-Ukrainian Mannie drain was brought out through a stab incision lateral to the main incision. The subdermis was approximated with interrupted 3-0 Vicryls. The skin was approximated with a running horizontal mattress 3-0 Vicryl Rapide suture and then Dermabond. At this time, Dr. Mccall joined me in the operating room and we performed a sequence of multiple arteriograms involving the right lower extremity. The findings are listed above. We noted no retained foreign body material within an artery. Dr. Mccall asked me to pull back on the sheath, so that the tip was in the aorta. I did this and I resecured the sheath. Dr. Mccall is going to plan on taking him to the interventional radiology suite tomorrow, possibly with further interventions. The patient is going to be transferred to the intensive care unit. TRANSINT:[id number] Voice Confirmation ID: [id number] DOCUMENT ID: [id number] YEVGENIY HULL MD at 1149 CC: LONDON MCCALL MD and BRITNEY HERNANDEZ [id number] DICTATION DATE: 01/22/192004 BOTTOM BRUSHER: 01/22/19 2342 ADM IN [facility] [address] [place] [address]
--- NOTE | 2019-01-24 12:03 | NUR ---
ANSWERED PTS CALL LIGHT AND SHE STATED "THESE ARM BANDS ARE TOO TIGHT AND THAT BOY HAS BEEN SUPPOSED TO GET ME NEW ONES ALL DAY". WRIST BANDS EASILY ABLE TO FIT THREE FINGERS UNDERNEATH, PTS NURSE PRINTING NEW ARM BANDS AT THIS TIME, I CUT ARM BANDS OFF PT AND SHE SAID "I DIDNT WANT THEM OFF JUST LOOSENED" EXPLAINED TO PT THAT HER NURSE HAD BEEN IN A ROOM BUT WAS CURRENTLY PRINTING NEW BANDS AND SHE STATED "SHUT YOUR SMART MOUTH" I TOLD HER I WOULD LEAVE AND SHE YELLED "TURN THE LIGHTS OFF AND SHUT THE DOOR". DONE PER PT REQUEST, NOTIFIED PTS NURSE AND CHARGE NURSE AND ALSO SPOKE WITH LINING SEWER GUILLERMINA
--- NOTE | 2019-01-24 12:09 | NUR ---
DRESSING CHANGED TO RIGHT RADIAL ART LINE.
--- NOTE | 2019-01-24 12:24 | NUR ---
SPOKE WITH PT ALHAJI CUMMINGS. CONSENT GRANTED FOR NEW CENTRAL LINE PLACEMENT.
--- NOTE | 2019-01-24 13:30 | NUR ---
TURNED OFF NEOSYNEPHRINE DRIP. BP STABLE.
--- NOTE | 2019-01-24 13:58 | NUR ---
ALIE HERE FOR CVL PLACEMENT.
--- NOTE | 2019-01-24 15:28 | NUR ---
CHANGED NS TUBING AND SWITCHED TO LEFT SUBCLAVIAN CENTRAL LINE.
--- NOTE | 2019-01-24 15:49 | NUR ---
LEFT GROIN CVL REMOVED. DRESSING PLACED. NO BLEEDING
--- NOTE | 2019-01-24 16:06 | OP ---
PATIENT NAME: ANAYELI CUMMINGS MEDICAL RECORD: [id number] :52 LOCATION:D.CVI D.CV01 ADMISSION DATE:01/22/19 SURGEON: YEVGENIY HULL MD DATE OF OPERATION: 01/23/2019 PREOPERATIVE DIAGNOSES: 1. Hemorrhagic shock. 2. Right groin hematoma. POSTOPERATIVE DIAGNOSES: 1. Hemorrhagic shock. 2. Right groin hematoma. 3. No ongoing bleeding. PROCEDURE: Exploration of right groin with drainage of hematoma. SURGEON: Yevgeniy Hull MD NOZZLE TENDER: Corey Howard MD BLOOD LOSS: No new blood loss; however, there was about 300 cc of non-clotted blood within the hematoma cavity. DRAINS: A 15-Prydeinig round closed suction drainage system. The patient has been increasingly tachycardic. Upon arrival to the operating room, her heart rate was 140. She has been hypotensive in the ICU. We have got a situation where more blood is coming out through the drain that it is actually being infused. The patient's hematocrit is around 21. The patient appears to be in a hemorrhagic shock. She does have an elevated PTT and one option would be to wait and see if this normalizes; however, it would be very unfortunate if her hematocrit continues to drop and she would have some type of event such as a cardiac event or even a cardiac arrest due to severe anemia. I do not want to reverse the patient's PTT with FFP for fear that one of the stents that was recently placed might clot off or the blood flow to the left lower extremity may clot off. So, I elected to take the patient to the operating room emergently. DESCRIPTION OF PROCEDURE: General anesthesia was induced by the anesthesia staff. Arterial line was placed by the anesthesia staff. The right groin was sterilely prepped and draped. Sutures were cut. I entered the hematoma cavity and there was probably about 300 cc of non-clotted blood that was under pressure that squirted out. I irrigated the cavity. I did not see any active bleeding. I encircled the superficial femoral artery and the profunda femoris artery with Vesseloops. I then incised the inguinal ligament. I approached the external iliac artery. Dr. Howard and I both looked and we could identify no evidence of ongoing bleeding. Therefore, we chose to terminate the operation. I irrigated with normal saline. I then placed a topical hemostatic agent in the base of the wound. A 15-Prydeinig round closed suction drainage system was brought out through a stab incision laterally. Drain was sutured to the skin with 2-0 nylon. The subcutaneous tissues were closed with interrupted 3-0 Vicryls. The skin was closed with a running horizontal mattress 3-0 nylon. Dermabond was then applied. The patient was then extubated and conveyed to the postanesthesia care unit, where she was in stable condition. OPERATIVE REPORT [id number] EMILIANOANAYELI SOLORZANON TRANSINT:[id number] Voice Confirmation ID: [id number] DOCUMENT ID: [id number] 01/24/2019 Edited for salad bar clerk error, dmm. YEVGENIY HULL MD at 1606 CC: LONDON HRENÁNDEZ MD, BRITNEY HERNANDEZ MCCARLEY, JAMES ROBERT MD and [id number] DICTATION DATE: 01/23/19 1449 DIRECTOR OF EARLY CHILDHOOD: 01/23/19 1632 ADM IN [facility] [id number] [place] [address]
[2019-01-24 17:11] LABS: HEMOGLOBIN 7.3 g/dL (12-16)
--- NOTE | 2019-01-24 17:11 | NUR ---
CRITICAL HBG CALLED FROM LAB, PTS NURSE AYE NOTIFIED
--- NOTE | 2019-01-24 17:14 | NUR ---
NOTIFIED DR. HERNÁNDEZ OF H&H. OBTAINED ORDERS TO TRANSFUSE 2 UNITS PRBC.
--- NOTE | 2019-01-24 17:50 | NUR ---
1ST UNIT OF PRBC INITIATED AT THIS TIME USING DR. WING BLOOD TUBING AND FILTER. VSS.
--- NOTE | 2019-01-24 19:00 | NUR ---
PT AOX4. UNLABORED RESPIRATIONS, CLEAR LUNG SOUNDS, SPO2 95 ON ROOM AIR. S1S2 HEARD, PERIPHERAL PULSES PRESENT. BILATERAL GROINS WITH DRSGS CDI. R GROIN JADA DRAIN INTACT AND COMPRESSED. BOWEL SOUNDS ACTIVE X4. RAMOS CATH INTACT. PT REPOSITIONED WITH PROMINENCES BRIDGED. VSS, DENIES NEEDS AT THIS TIME. CALL LIGHT AND BEDSIDE TABLE WITHIN PT REACH. CPOC.
--- NOTE | 2019-01-24 20:15 | NUR ---
FAMILY AT BEDSIDE, UPDATE PROVIDED AND ALL QUESTIONS ANSWERED. DENIES NEEDS.
--- NOTE | 2019-01-24 20:40 | NUR ---
FRESH WATER TO BEDSIDE, HS MEDS GIVEN AND TOLERATED WELL. PT REPOSITIONED FOR COMFORT. VSS, DENIES FURTHER NEEDS AT THIS TIME. CALL LIGHT AND BEDSIDE TABLE WITHIN PT REACH. CPOC.
--- NOTE | 2019-01-24 21:20 | NUR ---
PARTIAL LINEN CHANGE PROVIDED, PT REPOSITIONED WITH PROMINENCES BRIDGED. BILATERAL GRION DRSGS CDI. VSS, PT DENIES FURTHER NEEDS AT THIS TIME. CALL LIGHT AND BEDSIDE TABLE WITHIN PT REACH. CPOC.
--- NOTE | 2019-01-24 23:00 | NUR ---
REASSESSMENT COMPLETE, NO NEW CHANGES AT THIS TIME. PERIPHERAL PULSES PRESENT. BILATERAL GROINS WITH DRSGS CDI. VSS, PT RESTING QUIETLY WITH NO COMPLAINTS AT THIS TIME. REPOSITIONED WITH PROMINENCES BRIDGED. CALL LIGHT AND BEDSIDE TABLE WITHIN PT REACH. CPOC.
[2019-01-24 23:09] LABS: HEMATOCRIT 29.2 % (36.0-48.0); HEMOGLOBIN 10.1 g/dL (12-16)
[2019-01-25] VITALS (31 sets, daily range): BP systolic 94–1118; BP diastolic 47–76
--- NOTE | 2019-01-25 01:30 | NUR ---
PT SLEEPING QUIETLY WITH NO S/S OF PAIN OR DISTRESS NOTED. VSS, PT REPOSITIONED SELF INDEPENDENTLY. CALL LIGHT AND BEDSIDE TABLE WITHIN PT REACH. CPOC.
--- NOTE | 2019-01-25 03:00 | NUR ---
REASSESSMENT COMPLETE, NO NEW CHANGES AT THIS TIME. BILATERAL GROINS WITH DRSGS CDI. PERIPHERAL PULSES PRESENT. VSS, NO S/S OF ACUTE DISTRESS. PT REPOSIITONED WITH PROMINENCES BRDIGED AND PARTIAL LINEN CHANGE. DENIES FURTHER NEEDS AT THIS TIME. CALL LIGHT AND BEDSIDE TABLE WITHIN PT REACH. CPOC.
[2019-01-25 05:20] LABS: BASOPHILS 0.2 % (0-2); EOSINOPHILS 1.6 % (0-7); HEMOGLOBIN 10.1 g/dL (12-16); IMMATURE GRANULOCYTES 0.3 % (0-5); LYMPHOCYTES 14.8 % (15-50); MCHC 34.8 g/dL (31.0-37.0); MEAN PLATELET VOLUME 10.3 fL (7.4-10.4); MONOCYTES 7.5 % (2-11); NEUTROPHILS 75.6 % (40-80); RBC 3.26 10x6/uL (4.00-5.40); RDW 14.5 % (11.5-14.5); WBC 8.9 10x3/uL (4.8-10.8)
[2019-01-25 05:24] LABS: PLATELET COUNT 77 10x3/uL (130-400)
[2019-01-25 05:26] LABS: PLATELET ESTIMATE DECREASED
[2019-01-25 05:35] LABS: ALBUMIN 1.8 g/dL (3.4-5.0); ALKALINE PHOSPHATASE 46 U/L (46-116); ALT (SGPT) 119 U/L (10-68); BILIRUBIN - TOTAL 0.23 mg/dL (0.2-1.3); CALCIUM 7.1 mg/dL (8.5-10.1); CARBON DIOXIDE 24.4 mmol/L (21.0-32.0); CHLORIDE - SERUM 111 mmol/L (98-107); CREATININE - SERUM 0.8 mg/dL (0.6-1.3); GLUCOSE 103 mg/dL (74-106); POTASSIUM - SERUM 3.2 mmol/L (3.5-5.1); PROTEIN - SERUM 3.9 g/dL (6.4-8.2); SODIUM 145 mmol/L (136-145); eGFR NON AFRICAN AMERICAN 76 mL/min (90-120)
[2019-01-25 05:38] LABS: CALC OSMOLALITY 286 mosm/kg (275-300); UREA NITROGEN 8 mg/dL (7-18)
--- NOTE | 2019-01-25 07:00 | NUR ---
RECEIVED REPORT FROM NIGHT NURSE. PT RESTING IN BED AWAKE ALERT AND ORIENTED. VSS. ART LINE TO RADIAL IN USE FOR BP. GOOD WAVE FORM. LEFT SUBCLAVIAN CENTRAL LINE WITH NS INFUSING AT 75. DRESSING TO LEFT GROIN FROM PREVIOUS CVL CDI. DRESSING TO RIGHT GROIN FROM INCISION CDI. NO EVIDENCE OF ADVANCED SWELLING OR BRUISING. FRANKLIN PEDAL PULSES PALPABLE. WILL CONTINUE TO MONITOR
--- NOTE | 2019-01-25 09:13 | NUR ---
Nutrition Follow Up: Chart reviewed Diet: AHA PO Intake: 50% meal avg Wt gain noted No BM since admit Meds and labs reviewed Rec continue current diet. RD following.
--- NOTE | 2019-01-25 09:30 | NUR ---
ASSISTED PT TO SIT UP ON SIDE OF BED. DAUGHTER IN ROOM SITTING WITH PATIENT TO ENSURE SAFETY.
--- NOTE | 2019-01-25 10:30 | NUR ---
PHYSICAL THERAPY ASSISTED PATIENT FROM BED TO CHAIR. DAUGHTER IN ROOM
--- NOTE | 2019-01-25 11:16 | NUR ---
DRESSING TO RIGHT GROIN SURGICAL INCISION CHANGED. CLEANED SITE C BETADINE SWABS AND COVERED WITH [place] DRESSING. NO OOZING AT SITE.
--- NOTE | 2019-01-25 13:00 | NUR ---
TRANSFERRED PATIENT BACK TO BED. PATIENT ABLE TO SUPPORT OWN WEIGHT. ATE 50% OF LUNCH. VITAL SIGNS ARE STABLE.
--- NOTE | 2019-01-25 15:47 | NUR ---
TREATED SYSTOLIC BP ABOVE 150 WITH PRN APRESOLINE. PT RESTING IN BED AWAKE AND ALERT. NO COMPLAINTS
--- NOTE | 2019-01-25 16:30 | NUR ---
OBTAINED ORDERS FROM DR. COSME FOR 2.5MG LOPRESSOR IV NOW AND NITROGLYCERIN DRIP TO MAINTAIN SYSTOLIC BP BELOW 150.
--- NOTE | 2019-01-25 16:40 | NUR ---
INITIATED NITROGLYCERIN DRIP AT THIS TIME AT 5ML/HR.
--- NOTE | 2019-01-25 17:45 | NUR ---
BP STABLE WITH NITRO DRIP AT 22ML/HR. PATIENT ATE 50% DINNER TRAY. PAIN CURRENTLY UNDER CONTROL. WILL CONTINUE TO MONITOR
--- NOTE | 2019-01-25 18:36 | MORECARE ---
CASE MANAGEMENT DISCHARGE SUMMARY PATIENT: ANAYELI CUMMINGS UNIT: [id number] ADM DATE: 01/22/19 AGE: 68 : 51 SEX: F ROOM/BED: [facility] AUTHOR: KEVIN VAZQUEZ PHYSICIAN: REFERRING PHYSICIAN: TED COSME MD DATE OF SERVICE: 01/25/19 Discharge Plan Patient Name: ANAYELI CUMMINGS Facility: [facility]:[place] : 1950 Planned Disposition: Home Anticipated Discharge Date: Discharge Date: Expected LOS: Initial Reviewer: [email or web address] Initial Review Date: 01/24/2019 Generated: 01/25/19 7:36 pm DCPIA - Discharge Planning Initial Assessment Updated by [email or web address]: Phylicia Manzo on 01/25/19 6:34 pm * Is the patient Alert and Oriented? Yes * How many steps to enter\exit or inside your home? * PCP HERNANDEZ * Pharmacy [facility] * Preadmission Environment Home with Family * ADLs Independent * Equipment Cane * List name and contact numbers for known caregivers / representatives who currently or will assist patient after discharge: BRENDAN - DAUGHTER - [phone] ALHAJI - SPOUSE- [phone] * Verbal permission to speak to the caregivers and representatives has been obtained from the patient. Yes * Community resources currently utilized None * Additional services required to return to the preadmission environment? No * Can the patient safely return to the preadmission environment? Yes * Has this patient been hospitalized within the prior 30 days at any hospital? No Patient Name: ANAYELI CUMMINGS Page [id number] at 1836 All edits/amendments must be made on the electronic document DICTATION DATE: 01/25/191835 FLEET MECHANIC: KEON 01/25/191835 RPT#: [id number] DC DATE: STATUS: ADM IN [facility] [address] [place] [address] END OF REPORT
--- NOTE | 2019-01-25 18:43 | MORECARE ---
CASE MANAGEMENT DISCHARGE SUMMARY PATIENT: ANAYELI CUMMINGS UNIT: [id number] ADM DATE: 01/22/19 AGE: 68 : 52 SEX: F ROOM/BED: [facility] AUTHOR: TAYLOR,DOC PHYSICIAN: REFERRING PHYSICIAN: TED COSME MD DATE OF SERVICE: 01/25/19 Discharge Plan Patient Name: ANAYELI CUMMINGS Facility: [facility]:[place] : 1950 Planned Disposition: Home Anticipated Discharge Date: Discharge Date: Expected LOS: Initial Reviewer: [email or web address] Initial Review Date: 01/24/2019 Generated: 01/25/19 7:43 pm Comments DCP- Discharge Planning Updated by [email or web address]: Phylicia Manzo on 01/25/19 5:[address] LATE ENTRY 01/24/19 @ 1600 Patient Name: ANAYELI CUMMINGS Admission Status: Elective Accout number: [id number] Admission Date: 01-22-2019 : 1950 Admission Diagnosis:ACUTE ISCHEMIA OF INTESTINE, PART AND EXTENT UNSPECIFIE Attending: TED COSME Current LOS: 3 Anticipated DC Date: Planned Disposition: Home Primary Insurance: [employer] ADV Discharge Planning Comments: CM met with patient and daughter (Brendan) at bedside after explaining CM role and obtaining verbal consent. Patient lives at home with her ex- Alhaji and plans to return there upon discharge. Patient feels this would be a safe discharge. CM discussed availability / needs of home health and medical equipment. Patient denies any discharge needs at this time. Patient states she will have her family drive her home upon discharge. CM will continue to follow and assist as needed with discharge planning / needs. Matching Machine Operator: Phylicia Manzo DCPIA - Discharge Planning Initial Assessment Updated by [email or web address]: Phylicia Manzo on 01/25/19 6:34 pm * Is the patient Alert and Oriented? Yes * How many steps to enter\exit or inside your home? * PCP HERNANDEZ * Pharmacy [facility] * Preadmission Environment Home with Family * ADLs Independent * Equipment Cane * List name and contact numbers for known caregivers / representatives who currently or will assist patient after discharge: BRENDAN - DAUGHTER - [phone] ALHAJI Oglesby SPOUSE- [phone] * Verbal permission to speak to the caregivers and representatives has been obtained from the patient. Yes * Community resources currently utilized None * Additional services required to return to the preadmission environment? No * Can the patient safely return to the preadmission environment? Yes * Has this patient been hospitalized within the prior 30 days at any hospital? No Last DP export: 01/25/19 5:36 p Patient Name: ANAYELI CUMMINGS Page [id number] at 1843 All edits/amendments must be made on the electronic document DICTATION DATE: 01/25/191841 EYELET MAKER: KEON 01/25/191841 RPT#: [id number] DC DATE: STATUS: ADM IN [facility] [address] [place] [address] END OF REPORT
[2019-01-26] VITALS (10 sets, daily range): BP systolic 88–144; BP diastolic 50–71
--- NOTE | 2019-01-26 03:23 | NUR ---
NO CHANGES IN PT STATUS PT RESTING IN ROOM VSS WILL MONITOR
[2019-01-26 06:29] LABS: BASOPHILS 0.3 % (0-2); EOSINOPHILS 2.9 % (0-7); HEMATOCRIT 27.8 % (36.0-48.0); HEMOGLOBIN 9.7 g/dL (12-16); IMMATURE GRANULOCYTES 0.4 % (0-5); LYMPHOCYTES 15.9 % (15-50); MCH 31.2 pg (26.0-34.0); MCHC 34.9 g/dL (31.0-37.0); MCV 89.4 fL (80.0-100.0); MEAN PLATELET VOLUME 10.6 fL (7.4-10.4); MONOCYTES 5.9 % (2-11); NEUTROPHILS 74.6 % (40-80); RBC 3.11 10x6/uL (4.00-5.40); RDW 14.7 % (11.5-14.5); WBC 7.8 10x3/uL (4.8-10.8)
[2019-01-26 06:48] LABS: ALBUMIN 1.9 g/dL (3.4-5.0); ALKALINE PHOSPHATASE 46 U/L (46-116); BILIRUBIN - TOTAL 0.47 mg/dL (0.2-1.3); CALC OSMOLALITY 282 mosm/kg (275-300); CALCIUM 7.3 mg/dL (8.5-10.1); CARBON DIOXIDE 25.3 mmol/L (21.0-32.0); CHLORIDE - SERUM 112 mmol/L (98-107); CREATININE - SERUM 0.8 mg/dL (0.6-1.3); GLUCOSE 91 mg/dL (74-106); PLATELET COUNT 101 10x3/uL (130-400); PROTEIN - SERUM 4.3 g/dL (6.4-8.2); SODIUM 143 mmol/L (136-145); UREA NITROGEN 8 mg/dL (7-18); eGFR NON AFRICAN AMERICAN 76 mL/min (90-120)
[2019-01-26 06:49] LABS: ALT (SGPT) 80 U/L (10-68); POTASSIUM - SERUM 3.7 mmol/L (3.5-5.1)
--- NOTE | 2019-01-26 09:45 | OP ---
PATIENT NAME: ANAYELI CUMMINGS MEDICAL RECORD: [id number] :52 LOCATION:D.LYDIAI D.CV01 ADMISSION DATE:01/22/19 SURGEON: COREY COSME MD DATE OF OPERATION: 01/23/2019 SURGEON: Dioni Daniel MD AUTO PARTS MANAGER: Corey Cosme MD PROCEDURE: Right femoral artery exploration for hemorrhage. Right femoral artery incision opened, but no active bleeding. Intraoperative ACT 125 as the heparin had been allowed to metabolize. This patient underwent attempted mesenteric artery stent with micro access via the right common femoral artery resulting in displacement of a 2-week old external iliac stent and then placement of left femoral cannulation, placement of a stent, and a right femoral exploration by Dr. Daniel with removal of the deformed stent and patch repair with intraoperative arteriogram. Overnight, the patient had hemorrhage. CT evaluation of retroperitoneal hemorrhage and earlier the same day as this exploration underwent right common iliac stent, removal of the left femoral access with return of flow on the left, the heparin had worn off. The patient has been on chronic Plavix. At the time of the surgery, the patch repair appeared to be intact and there was palpable flow in the right distal common femoral and superficial femoral arteries. TRANSINT:[id number] Voice Confirmation ID: [id number] DOCUMENT ID: [id number] COREY COSME MD at 0945 CC: [id number] DICTATION DATE: 01/25/19 1331 HAT SPRAYER: 01/25/19 1520 ADM IN [place] [id number] [place] [address]
--- NOTE | 2019-01-26 10:42 | NUR ---
09-DR COSME AT [facility] -INTERVENTIONAL RADIOLOGY AT BEDSIDE-DIRECTED REMOVAL OF REBECCA AND SALINE LOCK IV-AMBULATE PT-PT DENIES ANY ABDOMINAL PAIN AFTER EATING-R RADIAL REBECCA REMOVED PER PROTOCOL-NOTED HEMATOMA PRESENT ALREADY-HEMOSTASIS OBTAINED-RAMOS CATH D/C'D WITH TIP INTACT- 929-PT AMBULATED WITH PHYSICAL THERAPY 50-ASSISTED TO RESTROOM-NOTED CONTINUED TO FURNITURE CRAWL-STATED R GROIN HURTS-NO INCREASED HEMATOMA AND SAME FIRM-ASSISTED TO BED-STATED L FOOT REMAINS NUMB "TINGLING"-NO CHANGE FROM EARLIER ASSESSMENT AND REPORT
--- NOTE | 2019-01-26 16:21 | NUR ---
1330-REMOVED R Yvonne STEIN ORDERED-1 SUTURE REMOVED-COMPLETE INTACT-FOLLOWED BY LARGE AMOUNT OF BOYD BROWN COLOURED DRAINAGE-NOTED AREA SOFTER TO TOUCH-NOTED BLISTER X 4 SMALL IN AREA OF TAPE-PT PROVIDED WITH SILVADENE AND INSTRUCTED ON USAGE-DR KAT SERVICE PG'D REGARDING SAME -DIRECTED TO CONTINUE WITH DISCHARGE-L CVL D/C PER PROTOCOL-HEMOSTASIS OBTAINED 1400-DR HULL CALLED UNIT AND STATUS REPORT GIVEN-HAD PT AMBULATE IN -NOTED SMALL AMOUNT OF SAME BOYD COLOURED DRAINAGE-WOUND SWAB OBTAINED OF SAME ORDERED-PT EXPRESSED ADDITONAL AMOUNT -AREA REMAINS SOFT 1515-K JOSLYN RN WITH [facility] AT BEDSIDE AND INFORMED PT OF FOLLOW UP CARE-PROVIDED PT WITH 3 BX OF 8R7-ILBT AND DIRECTIONS. PERCOCET 5MG PO GIVEN FOR 10./10 R GROIN PAIN-STATES SPECIFIC TO WOUND AREA-CONTINUES SOFT TO TOUCH-INCISION LINE WELL APPROXIMATED-DIRECTED TO SCHEDULE FOLLOW UP APPOINTMENT WITHIN 2WKS WITH PRIMARY PHYSICIAN DR HERNANDEZ'S OFFICE 1600-PT LEFT UNIT WITH VIA WHEELCHAIR
--- NOTE | 2019-01-26 17:26 | MORECARE ---
CASE MANAGEMENT DISCHARGE SUMMARY PATIENT: ANAYELI CUMMINGS UNIT: [id number] ADM DATE: 01/22/19 AGE: 68 : 51 SEX: F [facility]: TAYLOR,DOC PHYSICIAN: REFERRING PHYSICIAN: TED COSME MD DATE OF SERVICE: 01/26/19 Discharge Plan Patient Name: ANAYELI CUMMINGS Facility: [facility]:[place] : 1950 Planned Disposition: Home Anticipated Discharge Date: Discharge Date: 01/26/2019 Expected LOS: Initial Reviewer: [email or web address] Initial Review Date: 01/24/2019 Generated: 01/26/19 6:25 pm Comments DCP- Discharge Planning Updated by [email or web address]: Phylicia Manzo on 01/26/19 4:[address] D/C IMM EXPLAINED AND SERVED 01/26/19 @ 1400. PATIENT DENIES ANY D/C NEEDS. CM will continue to follow and assist as needed with discharge planning / needs. DCP- Discharge Planning Updated by [email or web address]: Phylicia Manzo on 01/25/19 5:[address] LATE ENTRY 01/24/19 @ 1600 Patient Name: ANAYELI CUMMINGS Admission Status: Elective Accout number: [id number] Admission Date: 01-22-2019 : 1950 Admission Diagnosis:ACUTE ISCHEMIA OF INTESTINE, PART AND EXTENT UNSPECIFIE Attending: TED COSME Current LOS: 3 Anticipated DC Date: Planned Disposition: Home Primary Insurance: [employer] ADV Discharge Planning Comments: CM met with patient and daughter (Brendan) at bedside after explaining CM role and obtaining verbal consent. Patient lives at home with her ex- Alhaji and plans to return there upon discharge. Patient feels this would be a safe discharge. CM discussed availability / needs of home health and medical equipment. Patient denies any discharge needs at this time. Patient states she will have her family drive her home upon discharge. CM will continue to follow and assist as needed with discharge planning / needs. Guard Range: Phylicia Manzo DCPIA - Discharge Planning Initial Assessment Updated by [email or web address]: Phylicia Manzo on 01/25/19 6:34 pm * Is the patient Alert and Oriented? Yes * How many steps to enter\exit or inside your home? * PCP HERNANDEZ * Pharmacy [facility] * Preadmission Environment Home with Family * ADLs Independent * Equipment Cane * List name and contact numbers for known caregivers / representatives who currently or will assist patient after discharge: BRENDAN - DAUGHTER - [phone] ALHAJI - SPOUSE- [phone] * Verbal permission to speak to the caregivers and representatives has been obtained from the patient. Yes * Community resources currently utilized None * Additional services required to return to the preadmission environment? No * Can the patient safely return to the preadmission environment? Yes * Has this patient been hospitalized within the prior 30 days at any hospital? No Coverage Notice Reviewer: [email or web address] Mendel Manzo Notice Issued Date-Time: 01/26/2019 14:00 Notice Type: IM Discharge Notice Notice Delivered To: Patient Relationship to Patient: Self Vascular Nurse Name: Delivery Method: HAND - Hand Delivered Daisy Days: Prior Verbal Notification: Recipient Understood Notice: Yes Recipient Signature: Yes Med Rec Note Co-signed by Attending: Coverage Notice Comment: Last DP export: 01/25/19 5:43 p Patient Name: ANAYELI CUMMINGS Page 19448 at 1726 All edits/amendments must be made on the electronic document DICTATION DATE: 01/26/191724 ABATTOIR MANAGER: KEON 01/26/191724 RPT#: [id number] DC DATE:01/26/19 STATUS: DIS IN [facility] [address] [place] [address] END OF REPORT
--- NOTE | 2019-01-29 09:14 | MORECARE ---
CASE MANAGEMENT DISCHARGE SUMMARY PATIENT: ANAYELI CUMMINGS UNIT: [id number] ADM DATE: 01/22/19 AGE: 68 : 51 SEX: F [facility]: TAYLOR,DOC PHYSICIAN: REFERRING PHYSICIAN: TED COSME MD DATE OF SERVICE: 01/29/19 Discharge Plan Patient Name: ANAYELI CUMMINGS Facility: [facility]:[place] : 1950 Planned Disposition: Home Anticipated Discharge Date: Discharge Date: 01/26/2019 Expected LOS: Initial Reviewer: [email or web address] Initial Review Date: 01/24/2019 Generated: 01/29/19 10:14 am Comments DCP- Discharge Planning Updated by [email or web address]: Phylicia Manzo on 01/26/19 4:[address] D/C IMM EXPLAINED AND SERVED 01/26/19 @ 1400. PATIENT DENIES ANY D/C NEEDS. CM will continue to follow and assist as needed with discharge planning / needs. DCP- Discharge Planning Updated by [email or web address]: Phylicia Manzo on 01/25/19 5:[address] LATE ENTRY 01/24/19 @ 1600 Patient Name: ANAYELI CUMMINGS Admission Status: Elective Accout number: [id number] Admission Date: 01-22-2019 : 1950 Admission Diagnosis:ACUTE ISCHEMIA OF INTESTINE, PART AND EXTENT UNSPECIFIE Attending: TED COSME Current LOS: 3 Anticipated DC Date: Planned Disposition: Home Primary Insurance: [employer] ADV Discharge Planning Comments: CM met with patient and daughter (Brendan) at bedside after explaining CM role and obtaining verbal consent. Patient lives at home with her ex- Alhaji and plans to return there upon discharge. Patient feels this would be a safe discharge. CM discussed availability / needs of home health and medical equipment. Patient denies any discharge needs at this time. Patient states she will have her family drive her home upon discharge. CM will continue to follow and assist as needed with discharge planning / needs. Regional Construction Manager: Phylicia Manzo DCPIA - Discharge Planning Initial Assessment Updated by [email or web address]: Phylicia Manzo on 01/25/19 6:34 pm * Is the patient Alert and Oriented? Yes * How many steps to enter\exit or inside your home? * PCP HERNANDEZ * Pharmacy [facility] * Preadmission Environment Home with Family * ADLs Independent * Equipment Cane * List name and contact numbers for known caregivers / representatives who currently or will assist patient after discharge: BRENDAN - DAUGHTER - [phone] ALHAJI - SPOUSE- [phone] * Verbal permission to speak to the caregivers and representatives has been obtained from the patient. Yes * Community resources currently utilized None * Additional services required to return to the preadmission environment? No * Can the patient safely return to the preadmission environment? Yes * Has this patient been hospitalized within the prior 30 days at any hospital? No Coverage Notice Reviewer: [email or web address] Mendel Manzo Notice Issued Date-Time: 01/26/2019 14:00 Notice Type: IM Discharge Notice Notice Delivered To: Patient Relationship to Patient: Self Barrel Rifler Button Name: Delivery Method: HAND - Hand Delivered Daisy Days: Prior Verbal Notification: Recipient Understood Notice: Yes Recipient Signature: Yes Med Rec Note Co-signed by Attending: Coverage Notice Comment: Last DP export: 01/26/19 4:25 p Patient Name: ANAYELI CUMMINGS Page [id number] at 0914 All edits/amendments must be made on the electronic document DICTATION DATE: 01/29/19913 TOBACCO WETTER: KEON 01/29/19913 RPT#: [id number] DC DATE:01/26/19 STATUS: DIS IN [facility] [address] [place] [address] END OF REPORT
== END 2019-01-26 16:15 | disposition home or self-care (01) | DRG 252 ==
LOC: D.SP 10:40 → EDSTATUS 13:00 → D.CVICU 17:30
PROVIDERS: General Practice; Radiology Diagnostic Radiology; Surgery; ADMIT Thoracic Surgery (Cardiothoracic Vascular Surgery); ATTEND Thoracic Surgery (Cardiothoracic Vascular Surgery)
PROC: 04CK0ZZ Extirpation of Matter from Right Femoral Artery, Open Approach (ICD-10-PCS; 2019-01-22)
PROC: 047K0ZZ Dilation of Right Femoral Artery, Open Approach (ICD-10-PCS; 2019-01-22)
PROC: 04UH0KZ Supplement Right External Iliac Artery with Nonautologous Tissue Substitute, Open Approach (ICD-10-PCS; 2019-01-22)
PROC: 04753DZ Dilation of Superior Mesenteric Artery with Intraluminal Device, Percutaneous Approach (ICD-10-PCS; principal; 2019-01-22 13:00)
PROC: 0Y950ZZ Drainage of Right Inguinal Region, Open Approach (ICD-10-PCS; 2019-01-23)
PROC: 047C3DZ Dilation of Right Common Iliac Artery with Intraluminal Device, Percutaneous Approach (ICD-10-PCS; 2019-01-23)
PROC: 06HY33Z Insertion of Infusion Device into Lower Vein, Percutaneous Approach (ICD-10-PCS; 2019-01-23)
DX: T82.898A Other specified complication of vascular prosthetic devices, implants and grafts, initial encounter (principal); K55.059 Acute (reversible) ischemia of intestine, part and extent unspecified; R57.8 Other shock; K66.1 Hemoperitoneum; D62 Acute posthemorrhagic anemia; I10 Essential (primary) hypertension; K21.9 Gastro-esophageal reflux disease without esophagitis; F17.200 Nicotine dependence, unspecified, uncomplicated; D69.6 Thrombocytopenia, unspecified

== ENCOUNTER → 2020-05-02 13:11 | Outpatient (CLI) | payer MEDICARE ==
[2019-01-23 12:38] VITALS: BMI 25.3
== END | disposition home or self-care (01) ==
LOC: D.US 13:11
PROVIDERS: ATTEND Pediatrics
DX: R92.8 Other abnormal and inconclusive findings on diagnostic imaging of breast (principal)